=== PATIENT | female | born 1945 | race Caucasian/White ===

== ENCOUNTER → 2020-08-14 15:28 | Outpatient (CLI) | payer MEDICARE, BC, SELFPAY ==
--- NOTE | ~2020-08-14 | XR_ITS ---
EXAMINATION: XR chest 2V DATE: 08/14/2020 15:46 INDICATION: Cough. Shortness of breath. TECHNIQUE: Frontal and lateral views of the chest were obtained. COMPARISON: Chest 2 views 07/01/2014 FINDINGS: There is chronic mild scarring at the lung apices. Calcified right lung nodules are consist ent with old granulomatous disease. No pleural effusion or pneumothorax. The heart size is normal. IMPRESSION: 1. Mild scarring at the lung apices. Reviewed, dictated and finalized at location A.
== END ==
PROVIDERS: PCP Family Medicine; Visit Provider Family Medicine
DX: R05 Cough (principal); R91.8 Other nonspecific abnormal finding of lung field
CPT/HCPCS: 71046

== ENCOUNTER → 2020-10-19 13:18 | Outpatient (CLI) | payer MEDICARE, BC, SELFPAY ==
--- NOTE | ~2020-10-19 | MM_ITS ---
EXAMINATION: MM screening bernadine BI w gely HISTORY: Screening mammogram TECHNIQUE: Craniocaudal and mediolateral oblique 3-D tomosynthesis images were obtained and synthetic 2-D images were generated. CAD analysis was submitted and interpreted. COMPARISON: bilateral digital screening mammogram 09/10/2018 diagnostic right digital mammogram and limited right breast ultrasound 08/30/2018, 04/03/2017 bilateral digital screening mammogram examinations.. BREAST PARENCHYMAL COMPOSITION: The breasts are heterogeneously dense, which may obscure small masses . FINDINGS: There is an asymmetric irregular approximately 5 mm opacity in the posterior margin of the upper mid left breast slightly medial to the mid sagittal plane (craniocaudal Tomosynthesis image 47/ 66). Diagnostic left mammogram and ultrasound examination are recommended. 6 mm mass in the inner aspect of the lower inner quadrant of the right breast (craniocaudal Tomosynth esis image 36/63). Diagnostic right mammogram and right breast ultrasound examination are recommended .. IMPRESSION: 1. New asymmetric irregular 5 mg mass in posterior upper mid left breast; diagnostic left mammogram a nd left breast ultrasound examination are recommended 2. 6 mass in inner aspect of lower inner right breast; diagnostic right mammogram and right breast ul trasound are recommended. BI-RADS Category 0: Incomplete: Needs additional imaging evaluation. Reviewed, dictated and finalized at location A. [facility] IMPRESSION: 1. New asymmetric irregular 5 mg mass in posterior upper mid left breast; diagn ostic left mammogram and left breast ultrasound examination are recommended 2. 6 mass in inner aspect of lower inner right breast; diagnostic right mammogr am and right breast ultrasound are recommended. BI-RADS Category 0: Incomplete: Needs additional imaging evaluation.
--- NOTE | ~2020-10-19 | DEXA_ITS ---
Bone Density Report Name: Adrianna Stanford Age: 75 Sex: Female Ethnicity: White Date of : 1945 Indication: monitoring treatment; height loss; postmenopausal Referring Provider: MIKAL THURMAN Study: Bone densitometry was performed. Exam Date: October 19, 2020 Accession number: [id number] Bone Density: Region BMD T-score Z-score Classification AP Spine (L1, L4) 1.341 2.8 5.3 Normal Femoral Neck (Left) 1.064 1.9 4.1 Normal Total Hip (Left) 1.274 2.7 4.6 Normal Femoral Neck (Right) 1.074 2.0 4.2 Normal Total Hip (Right) 1.234 2.4 4.3 Normal Total Hip Mean 1.254 2.6 4.5 Normal World Health Organization criteria for BMD impression classify patients as: Normal (T-score at or above -1.0), Osteopenia (T-score between -1.0 and -2.5), or Osteoporosis (T-score at or below -2.5). 10-year Fracture Risk: FRAX not reported because: All T-scores for Spine Total, Hip Total, Femoral Neck at or above -1.0 Treated for osteoporosis Previous Exams: Region Exam Age BMD T-score BMD Change BMD Change Date g/cm2 vs Baseline vs Previous AP Spine(L1, L4) 10/19/2020 75 1.341 2.8 0.125* 0.027* 04/03/2017 72 1.314 2.5 0.099* 0.026* 03/17/2015 69 1.288 2.3 0.072* 0.019 03/05/2013 67 1.268 2.1 0.053* -0.013 10/11/2010 65 1.281 2.2 0.065* 0.043* 10/10/2008 63 1.238 1.8 0.022 0.022 09/01/2006 61 1.216 1.6 Total Hip(Left) 10/19/2020 75 1.274 2.7 -0.027 -0.027 04/03/2017 72 1.300 2.9 -0.001 -0.018 03/17/2015 69 1.318 3.1 0.017 0.073* 03/05/2013 67 1.245 2.5 -0.056* 0.033* 10/11/2010 65 1.212 2.2 -0.089* -0.033* 10/10/2008 63 1.245 2.5 -0.056* -0.056* 09/01/2006 61 1.301 2.9 Total Hip(Right) 10/19/2020 75 1.234 2.4 -0.003 0.014 04/03/2017 72 1.220 2.3 -0.017 -0.016 03/17/2015 69 1.236 2.4 -0.001 0.029* 03/05/2013 67 1.207 2.2 -0.030* 0.029* 10/11/2010 65 1.178 1.9 -0.059* -0.016 10/10/2008 63 1.194 2.1 -0.043* -0.043* 09/01/2006 61 1.237 2.4 *Denotes significance at 95% confidence level, LSC for AP Spine = 0.022 g/cm2, LSC for Total Hip = 0.027 g/cm2 Clinical Information Provided by Patient:
== END ==
PROVIDERS: PCP Family Medicine; Visit Provider Family Medicine
DX: Z12.31 Encounter for screening mammogram for malignant neoplasm of breast (principal); Z78.0 Asymptomatic menopausal state; R92.8 Other abnormal and inconclusive findings on diagnostic imaging of breast
CPT/HCPCS: 77063; 77067; 77080

== ENCOUNTER 2021-02-23 10:36 | Outpatient (CLI) | payer MEDICARE, BC, SELFPAY ==
--- NOTE | ~2021-02-23 | XR_ITS ---
EXAMINATION: XR knee LT 3V DATE: 02/23/2021 11:25 INDICATION: Left knee joint effusion. TECHNIQUE: 3 views of left knee were obtained. COMPARISON: Left knee radiograph 05/02/2011 FINDINGS: Bone alignment is normal. No fracture. There is moderate osteoarthritis of medial compartme nt and mild osteoarthritis of lateral and patellofemoral compartments. There is a small knee joint ef fusion. IMPRESSION: 1. Moderate left knee osteoarthritis. 2. Small left knee joint effusion. Reviewed, dictated and finalized at location A.
== END 2021-02-23 10:37 | disposition home or self-care (01) ==
PROVIDERS: PCP Family Medicine; Visit Provider Family Medicine
DX: M25.462 Effusion, left knee (principal); M17.12 Unilateral primary osteoarthritis, left knee
CPT/HCPCS: 73562

== ENCOUNTER → 2021-03-05 14:02 | Outpatient (CLI) | payer MEDICARE, BC, SELFPAY ==
--- NOTE | ~2021-03-05 | MMUS_ITS ---
EXAMINATION: MM diagnostic bernadine BI w gely, US breast BI complete HISTORY: Follow-up developing breast masses TECHNIQUE: Additional 3-D tomosynthesis images of the breasts were performed and synthetic 2-D images were generated. CAD analysis was submitted and interpreted. High resolution complete bilateral breas t ultrasound was performed. COMPARISON: Comparison to multiple prior studies sequentially, with oldest reviewed study dated 03/06. BREAST PARENCHYMAL COMPOSITION: The breasts are heterogenously dense, which may obscure small masses. FINDINGS: MAMMOGRAPHIC FINDINGS: The right breast is stable without evidence for malignancy. There is a new mass in the periareolar lo cation of the left breast measuring 1.3 cm which appears to be contiguous with the skin surface. Ther e are associated calcifications which are nonspecific. There is an irregular shaped mass in the upper medial quadrant of the left breast posteriorly which appears new compared with prior studies. ULTRASOUND: Right breast ultrasound: There are multiple cysts of the right breast measuring 3 mm or smaller. Left breast ultrasound: At 1:00 8 cm from the nipple, there is an oval shaped hypoechoic mass measuri ng 2-3 mm without posterior features or internal vascularity. Near the areola there is an oval hypoec hoic mass with internal cystic changes and significant internal vascularity. There is posterior acous tic enhancement. This mass measures 12 x 11 x 9 mm corresponding to the mass identified on mammograph y. At 3:00, 4 cm from the nipple there is a 2 mm cyst. At 11:00, 9 cm from the nipple, there is a com plex 6 mm mass with hypoechoic internal echotexture. No internal vascularity. There is subtle posteri or acoustic shadowing. IMPRESSION: 1. Abnormal masses of the left breast near the areola and at 11:00, 9 cm from the nipple. Ultrasound- guided biopsy of the periareolar mass recommended. For the smaller mass in the upper inner quadrant o f the left breast inferiorly, consider stereotactic biopsy due to the size and location. BI-RADS CATEGORY 4-SUSPICIOUS ABNORMALITY Reviewed, dictated and finalized at location A. IMPRESSION: 1. Abnormal masses of the left breast near the areola and at 11:00, 9 cm from t he nipple. Ultrasound-guided biopsy of the periareolar mass recommended. For th e smaller mass in the upper inner quadrant of the left breast inferiorly, consi anna stereotactic biopsy due to the size and location. BI-RADS CATEGORY 4-SUSPICIOUS ABNORMALITY
== END ==
PROVIDERS: PCP Family Medicine; Visit Provider Physician Assistant
DX: R92.8 Other abnormal and inconclusive findings on diagnostic imaging of breast (principal)
CPT/HCPCS: 76641; 77062; 77066; G0279

== ENCOUNTER 2021-03-10 15:49 | Outpatient (CLI) | payer MEDICARE, BC, SELFPAY ==
--- NOTE | ~2021-03-10 | US_ITS ---
EXAMINATION: US venous doppler [facility] DATE: 03/10/2021 16:22 INDICATION: Left lower limb pain and swelling TECHNIQUE: Grayscale ultrasound images without and with compression and Doppler ultrasound images of the left lower extremity veins were obtained. COMPARISON: None. FINDINGS: The visualized portions of left common femoral vein, profunda (deep) femoral vein, femoral vein, popl iteal vein, posterior tibial veins, gastrocnemius vein and greater saphenous vein outflow are patent. 7.8 x 1.9 x 2.4 cm Sepulveda cyst at the left popliteal fossa. IMPRESSION: 1. No deep venous thrombosis in the left lower limb. 2. Large Sepulveda's cyst at the left popliteal fossa. Reviewed, dictated and finalized at location A.
== END 2021-03-10 15:50 | disposition home or self-care (01) ==
LOC: ANHIMG 15:59
PROVIDERS: PCP Family Medicine; Visit Provider Physician Assistant Surgical
DX: R60.0 Localized edema (principal); M71.22 Synovial cyst of popliteal space [Baker], left knee
CPT/HCPCS: 93971

== ENCOUNTER 2021-03-25 09:24 | Outpatient (CLI) | payer MEDICARE, BC, SELFPAY ==
--- NOTE | ~2021-03-25 | MMUS_ITS ---
MM post biopsy diagnostic LT, US breast biopsy LT w image 03/25/2021 12:14 (accession [id number]), 03/25/2021 10:21 (accession [id number]) EXAMINATION: US GUIDED NEEDLE BIOPSY WITH VACUUM ASSISTANCE DATE: 03/25/2021 12:21 CDT INDICATION: Abnormal periareolar left breast mass seen on prior examination. Ultrasound-guided core biopsy is requested to evaluate for malignancy. TECHNIQUE AND FINDINGS: The risks and potential benefits of the procedure were discussed with the patient, and written inform ed consent was obtained. After sterile preparation of the left breast, 1% lidocaine was utilized for local anesthesia. 1% lidocaine with epinephrine was used for deep anesthesia. A 10G vacuum-assisted biopsy gun needle was advanced through to the outer edge of the region of inter est from a superior approach utilizing sonographic guidance. A total of 3 tissue core samples were o btained through the lesion. An Inrad tissue marker clip was then placed at the biopsy site. Hemostas is was achieved. The patient tolerated procedure well and there was no evidence of immediate complication. The patien t was given verbal instructions partly is from the department. Left breast mammograms to document ti ssue marker clip placement. The tissue samples were submitted to surgical pathology for histologic an alysis. IMPRESSION: 1. Successful ultrasound-guided vacuum-assisted biopsy of left breast mass with tissue marker placem ent. Please refer to pathology report for histologic analysis. Reviewed, dictated and finalized at location A. IMPRESSION: 1. Successful ultrasound-guided vacuum-assisted biopsy of left breast mass wit h tissue marker placement. Please refer to pathology report for histologic anal ysis.
--- NOTE | ~2021-03-25 | MM_ITS ---
MM stereotactic bx LT, MM stereotactic specimen LT 03/25/2021 12:12 (accession [id number]), 03/25/2021 12:13 (accession [id number]) EXAMINATION: MM stereotactic bx LT, MM stereotactic specimen LT DATE: Sanford Cornelius M.D. INDICATION: Abnormal mass in the left breast, upper central aspect. Stereotactic core biopsy is requ ested evaluate for malignancy. TECHNIQUE AND FINDINGS: The risks and potential benefits of the procedure were discussed with the patient and written informe d consent was obtained. The patient was placed in the prone position clustered at the table with the left breast in lateral medial compression, and the area of interest was localized and targeted utili zing digital imaging with stereotaxis. After sterile preparation of the skin, 1% lidocaine was utilized for local anesthesia at the skin pun cture site and 1% lidocaine with epinephrine was utilized for deeper local anesthesia/is about the bi opsy site. A 9G ESBATech vacuum assisted biopsy needle was advanced to the level of the calcification o f interest from a lateral approach utilizing stereotactic guidance and a total of 6 tissue core biops ies were obtained. A specimen radiograph demonstrates that the calcifications of interest are included within the tissue cores. A tissue marker clip was then placed at the biopsy site. The needle was removed and hemosta sis was achieved. The patient tolerated the procedure well and there is no evidence of significant i mmediate complication. The patient was given verbal as well as written postprocedural instructions p rior to discharge from the department. Tissue cores were submitted to surgical pathology for histolo gic analysis. A 2-view left unilateral digital mammogram was obtained post procedure and this demonstrates that the tissue marker clip is in expected position. IMPRESSION: 1. Successful stereotactic biopsy of left breast mass in the upper central aspect of the left breast , followed by tissue marker clip placement. Please refer to pathology report for histologic analysis . Reviewed, dictated and finalized at location A. IMPRESSION: 1. Successful stereotactic biopsy of left breast mass in the upper central asp ect of the left breast, followed by tissue marker clip placement. Please refer to pathology report for histologic analysis.
== END 2021-03-25 09:25 | disposition home or self-care (01) ==
PROVIDERS: PCP Family Medicine; Visit Provider Physician Assistant
DX: R92.8 Other abnormal and inconclusive findings on diagnostic imaging of breast (principal); C50.212 Malignant neoplasm of upper-inner quadrant of left female breast
CPT/HCPCS: 19081; 19083; 77065; 88305; 88342; 88360; A4648

== ENCOUNTER 2021-04-23 11:13 | Outpatient (CLI) | payer MEDICARE, BC, SELFPAY ==
--- NOTE | ~2021-04-23 | MR_ITS ---
MR breast BI wo/w con 04/23/2021 14:57 CDT INDICATION: Left-sided breast cancer, multifocal. Invasive ductal carcinoma. TECHNIQUE: MRI of the breasts perform using standard protocol pre-and post IV contrast with the follo wing sequences: Axial T2 STIR, axial T1, axial vibrant T1 with fat suppression precontrast and multip hasic postcontrast. COMPARISON: Comparison to multiple prior studies sequentially, with oldest reviewed study dated 04/03. FINDINGS: There are no abnormalities on the precontrast sequences. There is mild background parenchym al enhancement. In the lower outer quadrant of the right breast there is a mass measuring 6 x 3 x 3 m m, 8.3 cm from the nipple with rapid washout enhancement. LEFT BREAST: No signal abnormalities on precontrast sequences. There is mild background parenchymal enhancement. In the subareolar location of the left breast there is a 1.4 x 1.4 x 0.9 cm mass 0.83 cm from the nipple with rapid washout enhancement. This corresponds to one of the sites of recent biops y proven malignancy. In the central aspect of the left breast there is a slightly irregular shaped ma ss measuring 8 x 4 x 5 mm with rapid washout enhancement, likely intramammary lymph node. In the uppe r inner quadrant of the left breast there is a 4 mm mass with persistent rapid enhancement. There is associated artifact, likely from tissue marker from previous biopsy. This corresponds to the site of second biopsy proven malignancy. IMPRESSION: 1: Right breast: Probable benign intramammary lymph node of the right breast at 7:00, 8.3 cm from th e nipple. BI-RADS Category 3. Six-month follow-up diagnostic mammogram recommended. 2: Left breast: Abnormal masses of the left breast in the subareolar location measuring up to 1.4 cm and in the upper inner quadrant of the left breast, 11.4 cm from the nipple. Both masses are compati ble with biopsy-proven malignancy. There is an additional enhancing 8 mm mass in the central aspect o f the left breast. This finding is nonspecific in view of known multicentric malignancy in the left b reast. Cannot exclude additional site of malignancy versus intramammary lymph node Recommend Second Look left breast ultrasound to see if identification of this mass is possible. BI-RADS CATEGORY 0 - INCOMPLETE STUDY, NEED ADDITIONAL IMAGING EVALUATION. Reviewed, dictated and finalized at location A. IMPRESSION: 1: Right breast: Probable benign intramammary lymph node of the right breast a t 7:00, 8.3 cm from the nipple. BI-RADS Category 3. Six-month follow-up diagnos tic mammogram recommended. 2: Left breast: Abnormal masses of the left breast in the subareolar location measuring up to 1.4 cm and in the upper inner quadrant of the left breast, 11.4 cm from the nipple. Both masses are compatible with biopsy-proven malignancy. There is an additional enhancing 8 mm mass in the central aspect of the left br east. This finding is nonspecific in view of known multicentric malignancy in t he left breast. Cannot exclude additional site of malignancy versus intramammar y lymph node Recommend Second Look left breast ultrasound to see if identification of this m ass is possible. BI-RADS CATEGORY 0 - INCOMPLETE STUDY, NEED ADDITIONAL IMAGING EVALUATION.
[2021-04-23 11:44] LABS: Estimated Glomerular Filt Rate 54
== END 2021-04-23 11:14 | disposition home or self-care (01) ==
PROVIDERS: PCP Family Medicine; Visit Provider Internal Medicine Hematology & Oncology
DX: C50.212 Malignant neoplasm of upper-inner quadrant of left female breast (principal); Z17.0 Estrogen receptor positive status [ER+]; R92.8 Other abnormal and inconclusive findings on diagnostic imaging of breast
CPT/HCPCS: 77049; A9577; C8908

== ENCOUNTER 2021-08-25 08:53 | Emergency (ER) | payer MEDICARE, BC, SELFPAY ==
[2021-08-25] VITALS (23 sets, daily range): BP systolic 129–180; BP diastolic 56–94; PULSE 76–87; RESP 15–18; TEMP 36.7; O2SAT 96–100
--- NOTE | ~2021-08-25 | CT_ITS ---
EXAMINATION: CT lumbar spine wo con DATE: 08/25/2021 09:38 INDICATION: Low back pain radiating down right leg. TECHNIQUE: Computed tomography (CT) of the lumbar spine was performed without intravenous contrast. A utomated exposure control and iterative reconstruction technique were employed. The dose-length produ ct was 918.80 mGy-cm. COMPARISON: None FINDINGS: There is 6 degrees dextrocurvature of upper lumbar spine and 4 degrees levocurvature of low er lumbar spine. There is 3 mm retrolisthesis of L1 on L2 and 3 mm anterolisthesis of L2 on L3. Verte bral body heights are normal. There is moderately decreased disc height at L1-L2, L2-L3, and L3-L4 an d severely decreased disc height at L4-L5 and L5-S1 with endplate remodeling. The following disc leve ls are specifically discussed: L1-L2: The disc is bulging. There is mild bilateral facet joint osteoarthritis. There is moderate erica ateral neural foraminal stenosis. There is mild central canal stenosis. L2-L3: The disc is bulging. There is severe bilateral facet joint osteoarthritis. There is mild right and moderate left neural foraminal stenosis. There is moderate central canal stenosis. L3-L4: The disc is bulging. There is mild bilateral facet joint osteoarthritis. There is mild bilater al neural foraminal stenosis. There is mild central canal stenosis. L4-L5: The disc is bulging. There is severe bilateral facet joint osteoarthritis. There is moderate b ilateral neural foraminal stenosis. There is severe central canal stenosis. L5-S1: The disc is bulging. There is moderate bilateral facet joint osteoarthritis. There is mild rig ht and moderate left neural foraminal stenosis. There is mild central canal stenosis. IMPRESSION: 1. Severe lumbar spondylosis. Reviewed, dictated and finalized at location A.
--- NOTE | 2021-08-25 09:16 | PC.NURSE ---
PA at bedside for pt assessment.
--- NOTE | 2021-08-25 09:28 | PC.NURSE ---
Pt to CT.
--- NOTE | 2021-08-25 09:43 | ED.BACK ---
HPI - Back Pain/Injury General Chief Complaint: Back Pain/Injury <Luci Graf PA-C - Last Filed: 08/25/21 11:21> Stated Complaint: back pain <SLIME Roa Last Filed: 08/25/21 11:21> Time Seen by Provider: 08/25/21 09:07 <SLIME Roa Last Filed: 08/25/21 11:21> Source: patient <SLIME Roa Last Filed: 08/25/21 11:21> Mode of arrival: wheelchair <SLIME Roa Last Filed: 08/25/21 11:21> Limitations: no limitations <SLIME Roa Last Filed: 08/25/21 11:21> History of Present Illness HPI Narrative: This is a 76 year old female that presents to the ER for low back pain present since this morning. Reports the pain is in the right lower back. It does at times radiate down the right leg. Worse with movement and relieved with rest. She did take Tylenol earlier this morning for pain. No known injury or trauma. Denies fever, vomiting, dysuria, hematuria, saddle anesthesia, or bowel/bladder incontinence. <Luci Graf PA-C - Last Filed: 08/25/21 11:21> Related Data Home Medications: Home Medications Medication Instructions Recorded Confirmed ascorbic acid (vitamin C) 500 mg mg PO 04/28/20 06/08/21 capsule biotin 1 mg capsule 1 mg PO DAILY 04/28/20 06/08/21 cholecalciferol (vitamin D3) 250 250 mcg PO DAILY 04/28/20 06/08/21 mcg (10,000 unit) tablet bclp-[id number]-[id number]-kdzd-sterols cap PO 04/28/20 06/08/21 375 mg-100 mg-36 mg-54 mg capsule magnesium gluconate 30 mg (550 mg) 30 mg PO DAILY 04/28/20 06/08/21 tablet acetaminophen 325 mg capsule 325 mg PO Q6H PRN 06/08/21 ibuprofen 200 mg capsule 200 mg PO Q6H PRN 06/08/21 <SLIME Roa Last Filed: 08/25/21 11:21> Allergies/Adverse Reactions: Allergies Allergy/AdvReac Type Severity Reaction Status Date / Time No Known Allergies Allergy Verified 08/25/21 11:47 <SLIME Roa Last Filed: 08/25/21 11:21> Review of Systems Review of Systems: CONSTITUTIONAL: Denies fever GASTROINTESTINAL: Denies abdominal pain, nausea, vomiting GENITOURINARY: Denies dysuria or hematuria. MUSCULOSKELETAL: Reports back pain, joint pain, and myalgia. NEUROLOGIC: Denies numbness, or weakness. <SLIME Roa Last Filed: 08/25/21 11:21> All systems reviewed & are unremarkable except as noted in HPI and below <Luci Graf PA-C - Last Filed: 08/25/21 11:21> ON LICENSE OF [facility] Past Medical History Medical History: Medical History Family history of breast cancer Diagnosed in 2020 age 76 History of vaginal delivery x 2 Hypertension Skin cancer <SLIME Roa Last Filed: 08/25/21 11:21> Surgical History Surgical History: Surgical History History of bilateral mastectomy 05/17/21 History of knee replacement History of tubal ligation <SLIME Roa Last Filed: 08/25/21 11:21> Family History Family History: Family History Father Family history of premature coronary heart disease, Onset Age: 75 Patient's father is Mother Family history of lung cancer, Onset Age: 79 Patient's mother is Hypertension Grandparent Family history of malignant neoplasm of breast Other Cerebrovascular accident Diabetes mellitus Family history of arthritis <SLIME Roa Last Filed: 08/25/21 11:21> Social History Social History: Social History Social History: Smoking status: Former smoker Second hand tobacco smoke exposure: No Alcohol intake: current Drinks per week: 7 Substance use: never Gender identity (if verbalized by the patient): Female Sexual Orientation (if Verbalized by the Patient): Straight or Heterosexual
[2021-08-25] MEDS: ACETAMINOPHEN 500 MG TABLET 1000 MG PO (12:19)
[2021-08-25] MEDS: diazePAM INJ (*CRX) 10 MG/2 ML SYRINGE 2.5 MG IM (12:19)
== END 2021-08-25 13:06 | disposition home or self-care (01) ==
PROVIDERS: Emergency Provider General Practice; PCP Family Medicine
DX: M54.31 Sciatica, right side (principal); M47.816 Spondylosis without myelopathy or radiculopathy, lumbar region
CPT/HCPCS: 72131; 96372; 99284; A9270; J3360

== ENCOUNTER 2021-11-03 10:00 | Outpatient (RCR) | payer MEDICARE, BC, SELFPAY ==
--- NOTE | 2021-10-07 09:41 | PTOPEVAL ---
PHYSICAL THERAPY EVALUATION AND PLAN OF CARE 10-07-21 Thank you for referring Adrianna Stanford to [facility].? She is scheduled to be seen for therapy? 2 x/week for 4 weeks. Please review, sign, date and return this plan of care NHUNG. I agree with and certify that the following plan of care is medically necessary. Referring Physician Date Attending Provider: Lindsey Kilgore MD PT Outpatient Evaluation Document 10/07/21 08:25 MINA (Rec: 10/07/21 09:34 MINA [id number]) Outpatient Past Medical History Past Medical History Source of Past Medical History Patient Neurological History Hx Neurological Disorders No Significant History Cardiovascular History Hx Hypertension Yes: meds Respiratory History Hx Respiratory Disorders No Significant History Gastrointestinal History Hx Gastrointestinal Disorders No Significant History Genitourinary History Hx Urinary Tract Infection Yes: recently completed antibiotic, slight discomfort with urination Musculoskeletal History Hx Arthritis Yes: all over body and all joints Hx Back Pain Yes: chronic Hx Orthopedic Surgery Yes: R and L TKR, B foot surgery; Jul 2021-L TKR Endocrine History Hx Endocrine Disorders No Significant History Other History Hx Cancer Yes: L breast cancer, no chemo , no radiation Evaluation Information Problem Diagnosis B mastectomy, L breast cancer stage I Onset May 17, 2021 Subjective Information is not doing any exercises for Query Text:As Reported By Patient/ arms, do move and use arms, Family stretch, but not been instructed on any specific exercises Prior Level of Function Activity Level (Last 3 Months) Occupation retired Hand Dominance Right Activity of Daily Living Ability Independent Indoor/Home Mobility Independent Community Mobility Independent Stairs Ability Independent Functional Cognition (Planning, Shopping Independent , Taking Medications) Cooking Yes Cleaning Yes Laundry Yes Shopping Yes Driving Yes Home Setting Home Type House,Multiple Levels Living Situation With Spouse Mobility Assistive Devices (Used Last 3 None Months) Comments Additional Prior Level of Function prior to breast surgery and L Comments
--- NOTE | 2021-11-03 10:50 | PTOPEVAL ---
PHYSICAL THERAPY DISCHARGE 11-03-21 Refer to the clinical summary below, for her status today, compared to the initial evaluation. The goals were partially achieved. Adrianna will be discharged from PT at this time. Thank you for referring Adrianna Stanford to [facility].? Please review, sign, date and return this Discharge report NHUNG. I agree with and certify that the following plan of care is medically necessary. Referring Physician Date Attending Provider: Lindsey Kilgore MD Document 11/03/21 10:05 MINA (Rec: 11/03/21 10:50 MINA [id number]) Assessment Status Discharge Subjective Information Adrianna reports: things are Query Text:As Reported By Patient/ better, chest tissue has Family softened, have been doing her self massage and wearing the compression sports bra; is able to reach into the cabinets easier; is doing the stretches at home for her shoulders; is ready for discharge due to leaving for [place] next week. Pain Assessment Timing of Pain Assessment Timing of Pain Assessment Assessment Self Report Self Report Pain Level 0 Pain Score Pain Score 0: Self Report Additional Pain Score Comments no tenderness, pain or tightness in trunk Upper Extremity Range of Motion General Upper Extremity Range of Motion Gross Upper Extremity Range of Motion in sitting: R and L shoulder Comments flexion and ER ranges are WNL and did not report any tightness. In supine, with R shoulder flexion- at end range reported tightness over axilla and pec only Lymphedema Evaluation Skin Observations Hyperpigmentation,Hyperplasia Tissue Texture Firm Lymphedema Stage II Skin Inspection Comment no edema over R and L UE; in sitting: minimal edema over R upper lateral trunk and lateral scapular area; no visible edema over L lateral trunk; in supine: palpation over: R trunk: axilla with palpation tightness over pec, with reported tightness;tissue inferior to horizontal breast incision with slight fibrotic t
== END 2021-11-03 12:05 | disposition home or self-care (01) ==
LOC: ANHPT 10:00
PROVIDERS: PCP Family Medicine
DX: I89.0 Lymphedema, not elsewhere classified (principal); C50.212 Malignant neoplasm of upper-inner quadrant of left female breast; Z17.0 Estrogen receptor positive status [ER+]; Z90.13 Acquired absence of bilateral breasts and nipples
CPT/HCPCS: 97140; 97161

== ENCOUNTER 2024-07-30 14:48 | Outpatient (CLI) | payer MEDICARE, BC, SELFPAY ==
[2024-07-30 15:24] LABS: Add Urine Microscopic? YES; Appearance Urine Clear (Clear); Bacteria Urine None Seen /hpf; Bilirubin Urine Negative (Negative); Blood Urine Negative (Negative); Color Urine Dark Yellow (Yellow); Glucose Urine UA Negative (Negative); Ketones Urine Negative (Negative); Leukocyte Esterase Ur 1+ LEU/UL (Negative); Need Manual Microscopic Reviewed; Nitrate Urine Positive (Negative); Non Pathogenic Casts 0-2; Protein Urine Negative (Negative); RBC Urine 0-2 /hpf (0-2); Specific Grav Ur 1.013 (1.001-1.035); Squamous Epithelial Cell Urine None Seen /hpf (Few); WBC Urine 21-50 /hpf (0-3)
== END 2024-07-30 14:49 | disposition home or self-care (01) ==
LOC: ANHLAB 14:51
PROVIDERS: PCP Family Medicine; Visit Provider Family Medicine
DX: R30.0 Dysuria (principal)
CPT/HCPCS: 81001; 87086

== ENCOUNTER 2024-08-23 13:46 | Outpatient (CLI) | payer MEDICARE, BC, SELFPAY ==
--- NOTE | ~2024-08-23 | XR_ITS ---
EXAMINATION: XR cervical spine 4-5V DATE: 08/23/2024 14:02 INDICATION: Cervical disc disorder with radiculopathy. TECHNIQUE: 4 views of cervical spine were obtained. COMPARISON: Cervical spine radiographs 04/05/2010, chest 2 views 08/14/2020 FINDINGS: There is 5 degrees levocurvature of cervical spine. There is 2 mm anterolisthesis of C4 on C5 and C5 on C6 and 3 mm anterolisthesis of C7 on T1. Vertebral body heights are normal. There is sev erely decreased disc height from C3-C4 through C6-C7 with endplate allowing. There is multilevel jennifer re facet joint osteoarthritis. There is mild central canal stenosis at C4-C5 and C5-C6. No prevertebr al soft tissue swelling. There is a 1.8 cm nodule in left lung. IMPRESSION: 1. Severe cervical spondylosis. 2. Left lung nodule, which may be granulomatous disease or malignancy. Noncontrast chest CT is recomm ended. Reviewed, dictated and finalized at location A. IMPRESSION: 1. Severe cervical spondylosis. 2. Left lung nodule, which may be granulomatous disease or malignancy. Noncontr ast chest CT is recommended.
== END 2024-08-23 13:47 | disposition home or self-care (01) ==
LOC: MICIMG 13:47
PROVIDERS: PCP Family Medicine; Visit Provider Family Medicine
DX: M47.812 Spondylosis without myelopathy or radiculopathy, cervical region (principal); R91.1 Solitary pulmonary nodule; M50.10 Cervical disc disorder with radiculopathy, unspecified cervical region
CPT/HCPCS: 72050

== ENCOUNTER 2024-09-05 13:15 | Outpatient (CLI) | payer MEDICARE, BC, SELFPAY ==
--- NOTE | ~2024-09-05 | CT_ITS ---
CT Scan of the Chest without Contrast: Clinical Indication: Pulmonary nodule Technique: Contiguous sections were acquired throughout the chest without intravenous contrast. Dose reduction technique was used on this scan by utilizing automated exposure control and iterative recon struction technique. The dose-length product (DLP) was 117.43 mGy-cm. Findings: There is no evidence of any significant mediastinal, hilar or axillary lymphadenopathy. Small calcifi ed mediastinal lymph nodes are present. Coronary artery calcifications are present. There is no evidence of pleural or pericardial effusion. Biapical calcified pleural plaques are present. Several calcified granulomas noted. Linear scarring l eft lung base noted. There is a 3 mm noncalcified lingular nodule (axial image 86). Images through the upper abdomen reveal no abnormalities. Impression: Calcified pleural plaques and biapical scarring. 3 mm lingular nodule. According to Fleischner Society criteria, for a low-risk patient, no further fo llow-up required. For a high-risk patient, consider 12 month follow-up CT. Reviewed, dictated and finalized at [facility]. Impression: Calcified pleural plaques and biapical scarring. 3 mm lingular nodule. According to Fleischner Society criteria, for a low-risk patient, no further follow-up required. For a high-risk patient, consider 12 mo nt follow-up CT.
== END 2024-09-05 13:16 | disposition home or self-care (01) ==
PROVIDERS: PCP Family Medicine; Visit Provider Student in an Organized Health Care Education/Training Program
DX: J94.8 Other specified pleural conditions (principal); J98.4 Other disorders of lung; R91.1 Solitary pulmonary nodule
CPT/HCPCS: 71250

== ENCOUNTER 2025-03-10 08:00 | Outpatient (CLI) | payer MEDICARE, BC, SELFPAY ==
--- NOTE | ~2025-03-10 | DEXA_ITS ---
Bone Density Report Name: MIKAELA JIMENEZ Age: 79 Sex: Female Ethnicity: White Date of : 1945 Indication: postmenopausal; screening for osteoporosis; height loss; Referring Provider: MIKAL THURMAN Study: Bone densitometry was performed. Exam Date: March 10, 2025 Accession number: [id number] Bone Density: Region BMD T-score Z-score Classification AP Spine(L1-L4) 1.376 3.0 5.7 Normal Femoral Neck (Left) 0.974 1.1 3.5 Normal Total Hip (Left) 1.171 1.9 4.0 Normal Femoral Neck (Right) 1.036 1.7 4.1 Normal Total Hip (Right) 1.123 1.5 3.7 Normal Total Hip Mean 1.147 1.7 3.9 Normal World Health Organization criteria for BMD impression classify patients as: Normal (T-score at or above -1.0), Osteopenia (T-score between -1.0 and -2.5), or Osteoporosis (T-score at or below -2.5). 10-year Fracture Risk: FRAX not reported because: All T-scores for Spine Total, Hip Total, Femoral Neck at or above -1.0 Clinical Information Provided by Patient: Has used the following medications: HRT (i.e. estrogen/hormone therapy), Vitamin D, Calcium Patient maximum height was 67 Menopause Age: 47 No regular weight bearing exercise Onset of menses at age 13 Number of children 2 Impression: The patient has normal bone mass. Discussion: LOW RISK OF FRACTURE; BONE DENSITY IS WELL ABOVE THE MINIMUM DESIRABLE LEVEL AND ABOVE AVERAGE FOR AGE AND SEX AT ALL SKELETAL SITES TESTED. This person's bone density is above expected limits for age and sex. This is rarely clinically significant, but should be pursued if there are significant musculoskeletal complaints. The patient should follow a healthful lifestyle (good nutrition with adequate calcium and vitamin D, and appropriate weight-bearing exercise). Follow-Up: Consider repeating this study in 5 years or sooner if there is some new clinical indication. Reported by: BLAKE on 03/10/2025 8:41:00 AM. Reviewed, dictated and finalized at location ASofia AKINS
--- OUTSIDE RECORDS SUMMARY | 2025-03-10 08:25 | XMS_ITS | Clinical Summary ---
Author Organization [facility] Address [address] [place] [address] Care Team Providers Care Bell Maker Name Role Phone Maggie Thomas MD Primary Care Provider Allergies Active Allergy Reactions Criticality Noted Date Comments Anastrozole Itching,Rash Medium 09/21/2021 Medications amLODIPine (NORVASC) 5 mg tablet amlodipine 5 mg tablet 1 Active clobetasoL (TEMOVATE) 0.05 % cream APPLY TOPICALLY TO THE AFFECTED AREA EVERY DAY AT BEDTIME 4 Active conj estrogens-bazed oxifene (Duavee) 0.45-20 mg tablet 0.45-20 mg daily Active traZODone (DESYREL) 50 mg tablet Take 1 tablet (50 mg total) by mouth nightly at bedtime 4 Active lidocaine (LIDODERM) 5 %Indications:Ac masha right-sided thoracic back pain Place 1 patch on the skin daily for 5 days Apply to painful area 12 hours per day, remove for 12 hours. 5 patch 4 Active Active Problems Problem Noted Date Diagnosed Date S/P bilateral mastectomy 09/21/2021 Essential hypertension 05/17/2021 Malignant neoplasm of upper- inner quadrant of left breast in female, estrogen receptor positive 04/02/2021 Varicose veins of left lower extremity 6 Immunizations Immunization Administration Dates Next Due Influenza, Quad, Adjuvantate d, Intramuscular 08/30/2023,09/03/2021 Influenza, Quadrivalent, Hig h Dose, Preservative Free, Intrr 08/16/2022,08/12/2020 Influenza, Trivalent, High D ose, Split, Preservative Free, Intramuscular 08/11/2019,08/24/2018,08/29/2017 Moderna SARS-CoV-2 Monovalen t Vaccination (12+ YRS) 02/02/2021,01/13/2021 Tdap 04/28/2021 ZOSTER Recombinant 10/22/2021 Surgical History Surgery Date Site/Laterality Comments TOE SURGERY REPLACEMENT TOTAL KNEE Medical History Medical History Date Comments Hypertension Cancer (HCC) Arthritis Bladder infection Family History Medical History Relation Name Comments Heart disease Father Lung cancer Mother Relation Name Status Comments Father (Age 75) Mother (Age 79) Sister (Age 57) Social History Tobacco Use Types Packs/Day Years Used Date Smoking Tobacco: Never Smokeless Tobacco: Never AUDIT-C Answer Date Recorded Q1: How often do you have a drink containing alcohol? 4 or more times a week 05/17/2021 Q2: How many drinks containi ng alcohol do you have on a typical day when you are drinking? 1 or 2 Q3: How often do you have si x or more drinks on one occasion? 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 Gender Identity Not on file Sexual Orientation Not on file Obstetrics History Last Filed Vital Signs Vital Sign Reading Time Taken Comments Blood Pressure 179/97 07/14/2024 4:46 PM CDT Pulse 72 07/14/2024 4:39 PM CDT Temperature 36.7 C (98 F) 07/14/2024 4:39 PM CDT Respiratory Rate 18 07/14/2024 4:39 PM CDT Oxygen Saturation 98% 07/14/2024 4:39 PM CDT Inhaled Oxygen Concentration - - Weight 77.1 kg (170 lb) 07/14/2024 4:39 PM CDT Height 165.1 cm (5' 5 ) 07/14/2024 4:39 PM CDT Body Mass Index 28.29 07/14/2024 4:39 PM CDT Plan of Treatment Health Maintenance Due Date Last Done Comments Depression Screening 1943 Fall Risk Assessment 1943 Osteoporosis Screening-Bone Density Scan 1943 Hepatitis B Screening 1961 Pneumococcal vaccine 65+ (1 of 1 - PCV) 1993 Well Visit 65+ 2008 Zoster Vaccine (2 of 2) 12/17/2021 10/22/2021 Covid-19 Vaccine (7 2023-2 5 season) 2024 08/18/2023, 09/30/2022, 05/13/2022, Additional history exists Influenza Vaccine (#1) 2024 , 08/16/2022, 09/03/2021, Additional history exists DTaP/Tdap/Td Vaccine (2 - Td or Tdap) 04/28/2031 04/28/2021 Insurance MEDICARE [facility] MEDICARE [place] Care Teams Bell Maker Relationship Specialty Start Date End Date Maggie Thomas MD [address] [facility] [address] [place] [address] PCP - General Family Medicine 08/19/20
--- OUTSIDE RECORDS SUMMARY | 2025-03-10 08:25 | XMS_ITS | Encounter Summary ---
Author Organization [facility] Address 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 Gender Identity Not on file Sexual Orientation Not on file documented as of this encounter Plan of Treatment Upcoming Encounters Date Type Department Care Team (Late st Contact Info) Description 04/08/2025 11:00 AM CDT Office Visit [facility] Oncology and Hematology - [place] [address] [facility] [address] [place] [address] Yaron Lopez MD [address] [facility] [address] [place] [address] documented as of this encounter Visit Diagnoses Diagnosis Depressive disorder, not elsewhere classified- Primary documented in this encounter Care Teams Organization Development Consultant Relationship Specialty Start Date End Date Maggie Thomas MD PCP - General Family Practice 04/02/21 documented as of this encounter
--- OUTSIDE RECORDS SUMMARY | 2025-03-10 08:25 | XMS_ITS | Encounter Summary ---
Author Organization [facility] Address [address] [place] [address] Care Team Providers Care Religious Activities Director Name Role Phone Maggie Thomas MD Primary Care Provider [phone]- [phone] Encounter Details Date Type Department Care Team (Late st Contact Info) Description 11/03/1998 Outpatient Historical [facility] Internal Medicine Medical [facility] [address] [facility] [address] [address] Leticia Garza Social History Tobacco Use Types Packs/Day Years Used Date Smoking Tobacco: Never Assessed Comments Unknown Sex and Gender Information Value Date Recorded Sex Assigned at Not on file Legal 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 Female 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 Gender Identity Not on file Sexual Orientation Not on file documented as of this encounter Plan of Treatment Upcoming Encounters Date Type Department Care Team (Late st Contact Info) Description 04/08/2025 11:00 AM CDT Office Visit [facility] Oncology and Hematology - [place] [address] [facility] [address] [place] [address] Yaron Lopez MD [address] [facility] [address] [place] [address] documented as of this encounter Visit Diagnoses Not on filedocumented in this encounter Care Teams Religious Activities Director Relationship Specialty Start Date End Date Maggie Thomas MD PCP - General Family Practice 04/02/21 documented as of this encounter
--- OUTSIDE RECORDS SUMMARY | 2025-03-10 08:25 | XMS_ITS | Encounter Summary ---
Author Organization [facility] Care Team Providers Care Chief Nuclear Medicine Technologist Name Role Phone Arcadio Valdivia DO Primary Care Provider [phone] Maggie Thomas MD Primary Care Provider Encounter Details Date Type Department Care Team (Latest Contact Info) Description 03/18/2016 Orders Only [facility]INCON[facility] ProviderLaurie MD [address] [place] [id number] Social History Tobacco Use Types Packs/Day Years Used Date Smoking Tobacco: Never Assessed Comments Unknown Sex and Gender Information Value Date Recorded Sex Assigned at Not on file 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 us Historical Provider Final Res ult documented in this encounter Visit Diagnoses Not on filedocumented in this encounter Care Teams Chief Nuclear Medicine Technologist Relationship Specialty Start Date End Date Arcadio Valdivia DO PCP - General 05/26/17 08/18/20 Maggie Thomas MD [address] [facility] [address] [place] [id number] PCP - General Family Medicine 08/19/20 documented as of this encounter
--- OUTSIDE RECORDS SUMMARY | 2025-03-10 08:25 | XMS_ITS | Encounter Summary ---
Author Organization 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 [address] [place] [address] Yaron Lopez MD [address] [facility] [address] [place] [address] documented as of this encounter Visit Diagnoses Not on filedocumented in this encounter Care Teams Assembler Sandal Parts Relationship Specialty Start Date End Date Maggie Thomas MD PCP - General Family Practice 04/02/21 documented as of this encounter
--- OUTSIDE RECORDS SUMMARY | 2025-03-10 08:25 | XMS_ITS | Encounter Summary ---
Author Organization [facility] Address [address] [place] [address] Care Team Providers Care Shed Workers Supervisor Name Role Phone Maggie Thomas MD Primary Care Provider [phone]- [phone] Encounter Details Date Type Department Care Team (Late st Contact Info) Description 04/16/[address] 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 Oncology and Hematology - [place] [address] [facility] [address] [place] [address] Yaron Lopez MD [address] [facility] [address] [place] [address] documented as of this encounter Visit Diagnoses Not on filedocumented in this encounter Care Teams Shed Workers Supervisor Relationship Specialty Start Date End Date Maggie Thomas MD PCP - General Family Practice 04/02/21 documented as of this encounter
--- OUTSIDE RECORDS SUMMARY | 2025-03-10 08:25 | XMS_ITS | Encounter Summary ---
Author Organization [facility] Address [address] [place] [address] Care Team Providers Care Pot Lining Supervisor Name Role Phone Maggie Thomas MD Primary Care Provider [phone]- [phone] Encounter Details Date Type Department Care Team (Late st Contact Info) Description 02/29/2000 Outpatient Historical [facility] Internal Medicine Medical [facility] [address] [facility] [address] [address] Leticia Garza Social History Tobacco Use Types Packs/Day Years Used Date Smoking Tobacco: Never Assessed Comments Unknown Sex and Gender Information Value Date Recorded Sex Assigned at Not on file Legal Sex Female 5: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 Gender Identity Not on file Sexual Orientation Not on file documented as of this encounter Plan of Treatment Upcoming Encounters Date Type Department Care Team (Late st Contact Info) Description 04/08/2025 11:00 AM CDT Office Visit [facility] Oncology and Hematology - [place] [address] [facility] [address] [place] [address] Yaron Lopez MD [address] [facility] [address] [place] [address] documented as of this encounter Visit Diagnoses Not on filedocumented in this encounter Care Teams Pot Lining Supervisor Relationship Specialty Start Date End Date Maggie Thomas MD PCP - General Family Practice 04/02/21 documented as of this encounter
--- OUTSIDE RECORDS SUMMARY | 2025-03-10 08:25 | XMS_ITS | Encounter Summary ---
Author Organization [facility] Address [address] [facility] Attn: Epic Prelude ADT [place] [address] Care Team Providers Care Printer Slotter Operator Name Role Phone Maggie Thomas MD Primary Care Provider [phone]- [phone] Encounter Details Date Type Department Care Team (Late st Contact Info) Description 10/21/1996 Outpatient Historical Conversion, History Leticia Garza Social History Tobacco Use Types Packs/Day Years Used Date Smoking Tobacco: Never Assessed Comments Unknown Sex and Gender Information Value Date Recorded Sex Assigned at Not on file Legal Sex Female 5: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 LOIN 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 Gender Identity Not on file Sexual Orientation Not on file documented as of this encounter Plan of Treatment Upcoming Encounters Date Type Department Care Team (Late st Contact Info) Description 04/08/2025 11:00 AM CDT Office Visit [facility] Oncology and Hematology - [place] [address] [place] [address] [facility] [address] [place] [address] Yaron Lopez MD [address] [facility] [address] [place] [address] documented as of this encounter Visit Diagnoses Not on filedocumented in this encounter Care Teams Printer Slotter Operator Relationship Specialty Start Date End Date Maggie Thomas MD PCP - General Family Practice 04/02/21 documented as of this encounter
--- OUTSIDE RECORDS SUMMARY | 2025-03-10 08:25 | XMS_ITS | Clinical Summary ---
Author Organization [facility] Address [address] [facility] [place] [place] [address] Care Team Providers Care Steam Oven Operator Name Role Phone Maggie Thomas MD Primary Care Provider +1- [phone] Allergies Active Allergy Reactions Criticality Noted Date Comments Anastrozole Rash,Itching Low 09/21/2021 Medications amLODIPine (NORVASC) 5 mg tablet Take 5 mg by mouth daily. 04/22/2021 Active Active Problems Patient Care Coordination No te Formatting of this note migh t be different from the original. Primary Care: Maggie Thomas MD Referring Provider: Maggie Thomas MD [address] [facility] [place] [address] Other: Dr. Lindsey Kilgore MD Problem Noted Date Diagnosed Date S/P bilateral mastectomy 09/21/2021 Malignant neoplasm of upper- inner quadrant of left breast in female, estrogen receptor positive 04/02/2021 Cancer Staging:Clinical stage from 05/26/2021:Stage IA(cT1c, cN0(sn), cM0, G2, ER+, CA+, HER2-) - Signed by Lindsey Kilgore MD on 05/26/2021 Encounters Date Type Department Care Team Description 02/05/2025 External Device Data STL ABSTRACTION Provider, Abstract 02/05/2025 External Device Data STL ABSTRACTION Provider, Abstract 01/25/2025 External Device Data STL ABSTRACTION Provider, Abstract 01/24/2025 External Device Data STL ABSTRACTION Provider, Abstract 01/07/2025 External Device Data STL ABSTRACTION Provider, Abstract 12/12/2024 External Device Data STL ABSTRACTION Provider, Abstract from Last 3 Months Immunizations Immunization Administration Dates Next Due (SPIKEVAX) (12 YRS UP PRIMAR Y SERIES) COVID-19 VACCINE - MRNA-[id number](PF) 100 MCG/0.5 ML IM SUSP 02/02/2021,01/13/2021 Family History Medical History Relation Name Comments Breast Cancer Daughter Heart Disease Father Lung Cancer Mother Diabetes Son Heart Disease Son Relation Name Status Comments Brother Alive Daughter Alive Father Mother Sister Son Alive Social History Tobacco Use Types Packs/Day Years Used Date Smoking Tobacco: Former Cigarettes 0.5 10 Smokeless Tobacco: Never Tobacco Cessation:Counseling Given: Not Answered Alcohol Use Standard Drinks/Week Comments Yes 0 (1 standard drink = 0.6 oz pur e alcohol) occasional Comments No Sex and Gender Information Value Date Recorded Sex Assigned at Not on file Legal Sex Female 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1 cm (5' 5 ) 08/31/2022 1:08 PM CDT Body Mass Index 28.42 08/31/2022 1:08 PM CDT Plan of Treatment Upcoming Encounters Date Type Department Care Team (Late st Contact Info) Description 04/08/2025 11:00 AM CDT Office Visit [facility] Oncology and Hematology - [place] [address] [place] [address] Yaron Lopez MD [address] [facility] [address] [place] [address] Health Maintenance Due Date Last Done Comments PNEUMOCOCCAL VACCINE 50+ YEA RS (1 of 1 - PCV) 1993 RSV VACCINE (60+ or ) (1 - 1-dose 75+ series) 2018 ZOSTER VACCINE (2 of 2) 12/17/2021 10/22/2021 OSTEOPOROSIS SCREENING 04/03/2022 04/03/2017, 2014 INFLUENZA VACCINE (#1) 2024 , 08/16/2022, 09/03/2021, Additional history exists COVID-19 Vaccine (3 - 2023-2 5 season) 2024 02/02/2021, 01/13/2021 DTAP/TDAP/TD VACCINES (2 - T d or Tdap) 04/28/2031 04/28/2021 Colorectal Cancer Screening Discontinued FIT/FOBT Q 1 year Discontinued 03/14/2000, , 11/03/1998 COLORECTAL SCREENING Discontinued FIT-DNA Q 3 years Discontinued Flex Sig/CT Colonography Q 5 years Discontinued Medical Devices Implanted Type Area Mine Promotor Device Identifier Shelf Expiration Date Model / Serial / Lot Trades Helper Clip Surgiclip Ii Presley 9.75in [id number] - [id number] Implanted:Qty : 1 on 05/17/2021 by Lindsey Kilgore MD at [facility] Clip Breast MEDTRONIC - COVIDIEN [id number] 02/17/2026 [id number] / / [id number] Hemostatic Surgicel 4x8in 1953 - [id number] Implanted:Qty : 3 on 05/17/2021 by Lindsey Kilgore MD at [facility] Hemostatic Breast J[employer]J- [employer] 06/19/20251951 / / [id number] Hemostatic Surgicel 4x8in 1953 - [id number] Implanted:Qty : 1 on 05/17/2021 by Lindsey Kilgore MD at [facility] [place] Hemostatic Breast J[employer]J- [employer] 06/19/20251951 / / [id number] Total Knee Hardware Insurance MEDICARE PART A AND B [facility]AL [facility] MEDICARE PART A AND B RX [facility] [employer] Advance Directives For more information, please contact: [phone] * Full Code (Latest Code Status on File) Date Activated Date Inactivated Comments 05/17/2021 1:40 PM 05/18/2021 12:43 PM Care Teams Steam Oven Operator Relationship Specialty Start Date End Date Maggie Thomas MD PCP - General Family Practice 04/02/21
--- OUTSIDE RECORDS SUMMARY | 2025-03-10 08:25 | XMS_ITS | Encounter Summary ---
Author Organization [facility] Address [address] [place] [address] Care Team Providers Care Associate Justice Name Role Phone Maggie Thomas MD Primary Care Provider +1- [phone] Encounter Details Date Type Department Care Team (Late st Contact Info) Description 12/17/1998 Outpatient Historical [facility] Internal Medicine Medical [facility] [address] [address] Leticia Garza Social History Tobacco Use Types Packs/Day Years Used Date Smoking Tobacco: Never Assessed Comments Unknown Sex and Gender Information Value Date Recorded Sex Assigned at Not on file Legal Sex Female 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 Gender Identity Not on file Sexual Orientation Not on file documented as of this encounter Plan of Treatment Upcoming Encounters Date Type Department Care Team (Late st Contact Info) Description 04/08/2025 11:00 AM CDT Office Visit [facility] Oncology and Hematology - [place] [address] [facility] [address] [place] [address] Yaron Lopez MD [address] [facility] [address] [place] [address] documented as of this encounter Visit Diagnoses Not on filedocumented in this encounter Care Teams Associate Justice Relationship Specialty Start Date End Date Maggie Thomas MD PCP - General Family Practice 04/02/21 documented as of this encounter
--- OUTSIDE RECORDS SUMMARY | 2025-03-10 08:25 | XMS_ITS | Encounter Summary ---
Author Organization 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 Oncology and Hematology - [place] [address] [place] [address] [facility] [address] [place] [address] Yaron Lopez MD [address] [facility] [address] [place] [address] documented as of this encounter Visit Diagnoses Not on filedocumented in this encounter Care Teams Wire Stitcher Machine Relationship Specialty Start Date End Date Maggie Thomas MD PCP - General Family Practice 04/02/21 documented as of this encounter
--- OUTSIDE RECORDS SUMMARY | 2025-03-10 08:25 | XMS_ITS | Encounter Summary ---
Author Organization [facility] Address [address] [place] [address] Care Team Providers Care C.O.D. 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 [address] [place] [address] documented as of this encounter Visit Diagnoses Not on filedocumented in this encounter Care Teams C.O.D. Audit Clerk Relationship Specialty Start Date End Date Maggie Thomas MD PCP - General Family Practice 04/02/21 documented as of this encounter
--- OUTSIDE RECORDS SUMMARY | 2025-03-10 08:25 | XMS_ITS | Encounter Summary ---
Author Organization [facility] Address [address] [place] [address] Care Team Providers Care Bin Packer Name Role Phone Maggie Thomas MD Primary Care Provider +1- [phone] Encounter Details Date Type Department Care Team (Late st Contact Info) Description 03/14/2000 Outpatient Historical [facility] Internal Medicine Medical [facility] [address] [address] Leticia Garza Social History Tobacco Use Types Packs/Day Years Used Date Smoking Tobacco: Never Assessed Comments Unknown Sex and Gender Information Value Date Recorded Sex Assigned at Not on file Legal Sex Female 5:18 AM MANAGER TRACK Gender Identity Not on file Sexual Orientation Not on file documented as of this encounter Plan of Treatment Upcoming Encounters Date Type Department Care Team (Late st Contact Info) Description 04/08/2025 11:00 AM CDT Office Visit [facility] Oncology and Hematology - [place] [address] [facility] [address] [place] [address] Yaron Lopez MD [address] [facility] [address] [place] [address] documented as of this encounter Visit Diagnoses Not on filedocumented in this encounter Care Teams Bin Packer Relationship Specialty Start Date End Date Maggie Thomas MD PCP - General Family Practice 04/02/21 documented as of this encounter
--- OUTSIDE RECORDS SUMMARY | 2025-03-10 08:25 | XMS_ITS | Encounter Summary ---
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 Gender Identity Not on file Sexual Orientation Not on file documented as of this encounter Plan of Treatment Upcoming Encounters Date Type Department Care Team (Late st Contact Info) Description 04/08/2025 11:00 AM CDT Office Visit [facility] Oncology and Hematology - [place] [address] [facility] [address] [place] [address] Yaron Lopez MD [address] [facility] [address] [place] [address] documented as of this encounter Visit Diagnoses Not on filedocumented in this encounter Care Teams Health Care Technician Relationship Specialty Start Date End Date Maggie Thomas MD PCP - General Family Practice 04/02/21 documented as of this encounter
--- OUTSIDE RECORDS SUMMARY | 2025-03-10 08:25 | XMS_ITS | Referral Summary ---
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
--- OUTSIDE RECORDS SUMMARY | 2025-03-10 08:25 | XMS_ITS | Encounter Summary ---
Author Organization [facility] Address [address] [facility] Attn: Epic Prelude ADT [place] BOB [address] Care Team Providers Care Supervisor Dry Cleaning Name Role Phone Maggie Thomas MD Primary Care Provider +1- [phone] Encounter Details Date Type Department Care Team (Late st Contact Info) Description 12/02/1996 Outpatient Historical Conversion, History Leticia Garza Social History Tobacco Use Types Packs/Day Years Used Date Smoking Tobacco: Never Assessed Comments Unknown Sex and Gender Information Value Date Recorded Sex Assigned at Not on file Legal Sex Female 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 Gender Identity Not on file Sexual Orientation Not on file documented as of this encounter Plan of Treatment Upcoming Encounters Date Type Department Care Team (Late st Contact Info) Description 04/08/2025 11:00 AM CDT Office Visit [facility] Oncology and Hematology - [place] [address] [place] [address] [facility] 200 [place] [address] Yaron Lopez MD [address] [facility] [address] [place] [address] documented as of this encounter Visit Diagnoses Not on filedocumented in this encounter Care Teams Supervisor Dry Cleaning Relationship Specialty Start Date End Date Maggie Thomas MD PCP - General Family Practice 04/02/21 documented as of this encounter
== END 2025-03-10 08:01 | disposition home or self-care (01) ==
LOC: ANHIMG 08:01
PROVIDERS: PCP Family Medicine; Visit Provider Family Medicine
DX: Z78.0 Asymptomatic menopausal state (principal)
CPT/HCPCS: 77080

== ENCOUNTER 2025-03-17 14:38 | Outpatient (CLI) | payer MEDICARE, BC, SELFPAY ==
--- NOTE | ~2025-03-17 | US_ITS ---
EXAM: PELVIC ULTRASOUND HISTORY: R10.2 - Pelvic and perineal pain COMPARISON: None. FINDINGS: UTERUS: 5.8 x 2.2 x 3.0 cm. The endometrial complex measures 1 mm. RIGHT OVARY: The right ovary is unremarkable in echogenicity and size measuring 1.1 x 1.8 x 1.5 cm. Dopplerable flow is identified. LEFT OVARY: The left ovary is unremarkable in echogenicity and size measuring 1.3 x 2.1 x 1.7 cm Dopplerable flow is identified. No free fluid is identified within the pelvis. IMPRESSION: Unremarkable sonographic evaluation of the postmenopausal female pelvis, as detailed above. If clinical suspicion persists, cross-sectional imaging (contrast-enhanced CT or MRI) is recommended for further evaluation. Reviewed, dictated and finalized at location A. IMPRESSION: Unremarkable sonographic evaluation of the postmenopausal female pelvis, as det chikis above. If clinical suspicion persists, cross-sectional imaging (contrast-enhanced CT o r MRI) is recommended for further evaluation.
--- OUTSIDE RECORDS SUMMARY | 2025-03-17 16:49 | XMS_ITS | Encounter Summary ---
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 Gender Identity Not on file Sexual Orientation Not on file documented as of this encounter Plan of Treatment Upcoming Encounters Date Type Department Care Team (Late st Contact Info) Description 04/08/2025 11:00 AM CDT Office Visit [facility] Oncology and Hematology - [place] [address] [place] [address] [facility] [address] [place] [address] Yaron Lopez MD [address] [facility] [address] [place] [address] documented as of this encounter Visit Diagnoses Not on filedocumented in this encounter Care Teams Hematology Technician Relationship Specialty Start Date End Date Maggie Thomas MD PCP - General Family Practice 04/02/21 documented as of this encounter
--- OUTSIDE RECORDS SUMMARY | 2025-03-17 16:49 | XMS_ITS | Encounter Summary ---
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 Gender Identity Not on file Sexual Orientation Not on file documented as of this encounter Plan of Treatment Upcoming Encounters Date Type Department Care Team (Late st Contact Info) Description 04/08/2025 11:00 AM CDT Office Visit [facility] Oncology and Hematology - [place] [address] [facility] [address] [place] [address] Yaron Lopez MD [address] [facility] [address] [place] [address] documented as of this encounter Visit Diagnoses Not on filedocumented in this encounter Care Teams Stack Clerk Relationship Specialty Start Date End Date Maggie Thomas MD PCP - General Family Practice 04/02/21 documented as of this encounter
--- OUTSIDE RECORDS SUMMARY | 2025-03-17 16:49 | XMS_ITS | Referral Summary ---
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
--- OUTSIDE RECORDS SUMMARY | 2025-03-17 16:49 | XMS_ITS | Clinical Summary ---
Author Organization [facility] Address [address] [facility] [place] [address] Care Team Providers Care Vegetable I Farmworker Name Role Phone Maggie Thomas MD Primary Care Provider +1- [phone] Allergies Active Allergy Reactions Criticality Noted Date Comments Anastrozole Rash,Itching Low 09/21/2021 Medications amLODIPine (NORVASC) 5 mg tablet Take 5 mg by mouth daily. 04/22/2021 Active Active Problems Patient Care Coordination No te Formatting of this note migh t be different from the original. Primary Care: Maggie Thomas MD Referring Provider: Maggie Thomas MD [address] [facility] [place] [address] Other: Dr. 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 Gender Identity Not on file Sexual Orientation Not on file Last Filed Vital Signs Vital Sign Reading Time Taken Comments Blood Pressure 145/72 10/08/2024 11:43 AM ROLLER STRUCTURAL MILL Pulse 69 10/08/2024 11:40 AM ROLLER STRUCTURAL MILL Temperature 36.3 C (97.3 F) 10/08/2024 11:40 AM ROLLER STRUCTURAL MILL Respiratory Rate 14 10/08/2024 11:4 0 AM ROLLER STRUCTURAL MILL Oxygen Saturation 97% 10/08/2024 11: 40 AM ROLLER STRUCTURAL MILL Inhaled Oxygen Concentration - - Weight 77.5 kg (170 lb 12.8 oz) 024 11:40 AM ROLLER STRUCTURAL MILL Height 165.1 cm (5' 5 ) 08/31/2022 1:08 PM CDT Body Mass Index 28.42 08/31/2022 1:08 PM CDT Plan of Treatment Upcoming Encounters Date Type Department Care Team (Late st Contact Info) Description 04/08/2025 11:00 AM CDT Office Visit [facility] Oncology and Hematology - [place] [address] [facility] [address] [place] [address] Yaron Lopez MD [address] [facility] [address] [place] [address] Health Maintenance Due Date Last [...] years Discontinued Medical Devices Implanted Type Area Payloader Operator Device Identifier Shelf Expiration Date Model / Serial / Lot Pharmacy Picking Tech Clip Surgiclip Ii Presley 9.75in [id number] - [id number] Implanted:Qty : 1 on 05/17/2021 by Lindsey Kilgore MD at [facility] Clip Breast [employer] - COVIDIEN [id number] 02/17/2026 [id number] / / [id number] Hemostatic Surgicel 4x8in 1953 [id number] Implanted:Qty : 3 on 05/17/2021 by Lindsey Kilgore MD at [facility] Hemostatic Breast J&J- [employer] 06/19/20251951 / / [id number] Hemostatic Surgicel 4x8in 1953 [id number] Implanted:Qty : 1 on 05/17/2021 by Lindsey Kilgore MD at [facility] Hemostatic Breast J[employer]- [employer] 06/19/20251951 / / [id number] Total Knee Hardware Insurance MEDICARE PART A AND B [facility]AL [facility] FEDERAL MEDICARE PART A AND B RX [facility] [employer] Advance Directives For more information, please contact: [phone] * Full Code (Latest Code Status on File) Date Activated Date Inactivated Comments 05/17/2021 1:40 PM 05/18/2021 12:43 PM Care Teams Vegetable I Farmworker Relationship Specialty Start Date End Date Maggie Thomas MD PCP - General Family Practice 04/02/21
--- OUTSIDE RECORDS SUMMARY | 2025-03-17 16:49 | XMS_ITS | Encounter Summary ---
Author Organization [facility] Address [address] [place] [address] Care Team Providers Care Television Mechanic Name Role Phone Maggie Thomas MD Primary Care Provider [phone]- [phone] Encounter Details Date Type Department Care Team (Late st Contact Info) Description 12/29/1998 Outpatient Historical [facility] Internal Medicine Medical [facility] [address] [facility] [address] [address] Leticia Garza Social History Tobacco Use Types Packs/Day Years Used Date Smoking Tobacco: Never Assessed Comments Unknown Sex and Gender Information Value Date Recorded Sex Assigned at Not on file Legal Sex Female 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 [place] [address] [place] [address] Yaron Lopez MD [address] [facility] [address] [place] [address] documented as of this encounter Visit Diagnoses Not on filedocumented in this encounter Care Teams Television Mechanic Relationship Specialty Start Date End Date Maggie Thomas MD PCP - General Family Practice 04/02/21 documented as of this encounter
--- OUTSIDE RECORDS SUMMARY | 2025-03-17 16:49 | XMS_ITS | Encounter Summary ---
Author Organization [facility] Address [address] [place] [address] Care Team Providers Care Power System Dispatcher Name Role Phone Maggie Thomas MD Primary Care Provider +1- [phone] Encounter Details Date Type Department Care Team (Late st Contact Info) Description 03/14/2000 Outpatient Historical [facility] Internal Medicine Medical [facility] [address] [facility] [address] [address] Leticia Garza Social History Tobacco Use Types Packs/Day Years Used Date Smoking Tobacco: Never Assessed Comments Unknown Sex and Gender Information Value Date Recorded Sex Assigned at Not on file Legal Sex Female 5:18 AM POURER BULL LADLE Gender Identity Not on file Sexual Orientation Not on file documented as of this encounter Plan of Treatment Upcoming Encounters Date Type Department Care Team (Late st Contact Info) Description 04/08/2025 11:00 AM CDT Office Visit [facility] Oncology and Hematology - [place] [address] [facility] 200 [place] [address] Yaron Lopez MD [address] [facility] [address] [place] [address] documented as of this encounter Visit Diagnoses Not on filedocumented in this encounter Care Teams Power System Dispatcher Relationship Specialty Start Date End Date Maggie Thomas MD PCP - General Family Practice 04/02/21 documented as of this encounter
--- OUTSIDE RECORDS SUMMARY | 2025-03-17 16:49 | XMS_ITS | Encounter Summary ---
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 200 [place] [address] Yaron Lopez MD [address] [facility] [address] [place] [address] documented as of this encounter Visit Diagnoses Not on filedocumented in this encounter Care Teams Drum Sander Setter Relationship Specialty Start Date End Date Maggie Thomas MD PCP - General Family Practice 04/02/21 documented as of this encounter
--- OUTSIDE RECORDS SUMMARY | 2025-03-17 16:49 | XMS_ITS | Encounter Summary ---
Author Organization [facility] Address [address] [facility] Attn: Epic Prelude ADT [place] BOB [address] Care Team Providers Care Skiver Welt End Name Role Phone Maggie Thomas MD Primary Care Provider +1- [phone] Encounter Details Date Type Department Care Team (Late st Contact Info) Description 10/21/1996 Outpatient Historical Conversion, History Leticia Garza Social History Tobacco Use Types Packs/Day Years Used Date Smoking Tobacco: Never Assessed Comments Unknown Sex and Gender Information Value Date Recorded Sex Assigned at Not on file Legal Sex Female 5:18 AM SUPERVISOR CUSTOMER SERVICES Gender Identity Not on file Sexual Orientation Not on file documented as of this encounter Plan of Treatment Upcoming Encounters Date Type Department Care Team (Late st Contact Info) Description 04/08/2025 11:00 AM CDT Office Visit [facility] Oncology and Hematology - [place] [address] [place] [address] [facility] 200 [place] [address] Yaron Lopez MD [address] [facility] [address] [place] [address] documented as of this encounter Visit Diagnoses Not on filedocumented in this encounter Care Teams Skiver Welt End Relationship Specialty Start Date End Date Maggie Thomas MD PCP - General Family Practice 04/02/21 documented as of this encounter
--- OUTSIDE RECORDS SUMMARY | 2025-03-17 16:49 | XMS_ITS | Encounter Summary ---
Author Organization [facility] Address [address] [place] [address] Care Team Providers Care Financial Compliance Officer Name Role Phone Maggie Thomas MD Primary Care Provider +1- [phone] Encounter Details Date Type Department Care Team (Late st Contact Info) Description 02/29/2000 Outpatient Historical [facility] Internal Medicine Medical [facility] [address] [facility] [address] [address] Leticia Garza Social History Tobacco Use Types Packs/Day Years Used Date Smoking Tobacco: Never Assessed Comments Unknown Sex and Gender Information Value Date Recorded Sex Assigned at Not on file Legal Sex Female 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 DIRECTOR Gender Identity Not on file Sexual Orientation Not on file documented as of this encounter Plan of Treatment Upcoming Encounters Date Type Department Care Team (Late st Contact Info) Description 04/08/2025 11:00 AM CDT Office Visit [facility] Oncology and Hematology - Romero [address] [facility] 200 [place] [address] Yaron Lopez MD [address] [facility] [address] [place] [address] documented as of this encounter Visit Diagnoses Not on filedocumented in this encounter Care Teams Financial Compliance Officer Relationship Specialty Start Date End Date Maggie Thomas MD PCP - General Family Practice 04/02/21 documented as of this encounter
--- OUTSIDE RECORDS SUMMARY | 2025-03-17 16:49 | XMS_ITS | Encounter Summary ---
Author Organization [facility] Address [address] [place] [address] Care Team Providers Care Community Development Technician Name Role Phone Maggie Thomas MD Primary Care Provider [phone]- [phone] Encounter Details Date Type Department Care Team (Late st Contact Info) Description 11/03/1998 Outpatient Historical [facility] Internal Medicine Medical [facility] [address] [facility] [address] [address] Leticia Garza Social History Tobacco Use Types Packs/Day Years Used Date Smoking Tobacco: Never Assessed Comments Unknown Sex and Gender Information Value Date Recorded Sex Assigned at Not on file Legal Sex Female 5:18 AM JAILER CHIEF Gender Identity Not on file Sexual Orientation Not on file documented as of this encounter Plan of Treatment Upcoming Encounters Date Type Department Care Team (Late st Contact Info) Description 04/08/2025 11:00 AM CDT Office Visit [facility] Oncology and Hematology - Romero [address] [facility] 200 [place] [address] Yaron Lopez MD [address] [facility] [address] [place] [address] documented as of this encounter Visit Diagnoses Not on filedocumented in this encounter Care Teams Community Development Technician Relationship Specialty Start Date End Date Maggie Thomas MD PCP - General Family Practice 04/02/21 documented as of this encounter
--- OUTSIDE RECORDS SUMMARY | 2025-03-17 16:49 | XMS_ITS | Encounter Summary ---
Author Organization [facility] Address [address] [place] [address] Care Team Providers Care Avionic Technician Name Role Phone Maggie Thomas MD Primary Care Provider +1- [phone] Encounter Details Date Type Department Care Team (Latest Contact Info) Description 02/29/2000 Outpatient Historical [facility] Leticia Chavez Depressive disorder, not elsewhere classified (Primary Dx) Social History Tobacco Use Types Packs/Day Years Used Date Smoking Tobacco: Never Assessed Comments Unknown Sex and Gender Information Value Date Recorded Sex Assigned at Not on file Legal Sex Female 5:18 AM RECRUITING ASSISTANT Gender Identity Not on file Sexual Orientation Not on file documented as of this encounter Plan of Treatment Upcoming Encounters Date Type Department Care Team (Late st Contact Info) Description 04/08/2025 11:00 AM CDT Office Visit [facility] Oncology and Hematology - [place] [address] [facility] 200 [place] [address] Yaron Lopez MD [address] [facility] [address] [place] [address] documented as of this encounter Visit Diagnoses Diagnosis Depressive disorder, not elsewhere classified- Primary documented in this encounter Care Teams Avionic Technician Relationship Specialty Start Date End Date Maggie Thomas MD PCP - General Family Practice 04/02/21 documented as of this encounter
--- OUTSIDE RECORDS SUMMARY | 2025-03-17 16:49 | XMS_ITS | Clinical Summary ---
Author Organization [facility] Address 1 [place] [address] Care Team Providers Care Data Consultant Name Role Phone Maggie Thomas MD [...] on file Legal Sex Female 3:27 PM PHOTOGRAPHIC RESTORER Gender Identity Not on file Sexual Orientation [...] Td or Tdap) 04/28/2031 04/28/2021 Insurance MEDICARE [facility] MEDICARE [employer] [place] Care Teams Data Consultant Relationship Specialty Start Date End Date Maggie Thomas MD [address] [facility] [address] [place] [address] PCP - General Family Medicine 08/19/20
--- OUTSIDE RECORDS SUMMARY | 2025-03-17 16:49 | XMS_ITS | Encounter Summary ---
Author Organization [facility] Address [address] [place] [address] Care Team Providers Care Associate Professor Of Mathematics Name Role Phone Maggie Thomas MD Primary Care Provider +1- [phone] Encounter Details Date Type Department Care Team (Late st Contact Info) Description 12/17/1998 Outpatient Historical [facility] Internal Medicine Medical [facility] [address] [facility] [address] [address] Leticia Garza Social History Tobacco Use Types Packs/Day Years Used Date Smoking Tobacco: Never Assessed Comments Unknown Sex and Gender Information Value Date Recorded Sex Assigned at Not on file Legal Sex Female 5:18 AM REGIONAL LOSS PREVENTION MANAGER Gender Identity Not on file Sexual Orientation Not on file documented as of this encounter Plan of Treatment Upcoming Encounters Date Type Department Care Team (Late st Contact Info) Description 04/08/2025 11:00 AM CDT Office Visit [facility] Oncology and Hematology - Romero [address] [facility] 200 [place] [address] Yaron Lopez MD [address] [facility] [address] [place] [address] documented as of this encounter Visit Diagnoses Not on filedocumented in this encounter Care Teams Associate Professor Of Mathematics Relationship Specialty Start Date End Date Maggie Thomas MD PCP - General Family Practice 04/02/21 documented as of this encounter
--- OUTSIDE RECORDS SUMMARY | 2025-03-17 16:49 | XMS_ITS | Encounter Summary ---
Author Organization [facility] Address [address] [facility] Attn: Epic Prelude ADT [place] BOB [address] Care Team Providers Care Chemical Dependency Nurse Name Role Phone Maggie Thomas MD Primary Care Provider [phone]- [phone] Encounter Details Date Type Department Care Team (Late st Contact Info) Description 01/06/1997 Outpatient Historical Conversion, History Leticia Garza Social History Tobacco Use Types Packs/Day Years Used Date Smoking Tobacco: Never Assessed Comments Unknown Sex and Gender Information Value Date Recorded Sex Assigned at Not on file Legal Sex Female 5:18 AM PARQUETRY LAYER Gender Identity Not on file Sexual Orientation Not on file documented as of this encounter Plan of Treatment Upcoming Encounters Date Type Department Care Team (Late st Contact Info) Description 04/08/2025 11:00 AM CDT Office Visit [facility] Oncology and Hematology - [place] [address] [place] [address] [facility] 200 [place] [address] Yaron Lopez MD [address] [facility] [address] [place] [address] documented as of this encounter Visit Diagnoses Not on filedocumented in this encounter Care Teams Chemical Dependency Nurse Relationship Specialty Start Date End Date Maggie Thomas MD PCP - General Family Practice 04/02/21 documented as of this encounter
--- OUTSIDE RECORDS SUMMARY | 2025-03-17 16:49 | XMS_ITS | Encounter Summary ---
Author Organization [facility] Address [address] [place] [address] Care Team Providers Care Contact Acid Plant Operator Helper Name Role Phone Maggie Thomas MD Primary Care Provider [phone]- [phone] Encounter Details Date Type Department Care Team (Late st Contact Info) Description 04/16/1999 Outpatient Historical [facility] Internal Medicine Medical [facility] [address] [facility] [address] [address] Leticia Garza Social History Tobacco Use Types Packs/Day Years Used Date Smoking Tobacco: Never Assessed Comments Unknown Sex and Gender Information Value Date Recorded Sex Assigned at Not on file Legal Sex Female 5:18 AM CBX OPERATOR Gender Identity Not on file Sexual Orientation Not on file documented as of this encounter Plan of Treatment Upcoming Encounters Date Type Department Care Team (Late st Contact Info) Description 04/08/2025 11:00 AM CDT Office Visit [facility] Oncology and Hematology - Romero [address] [facility] 200 [place] [address] Yaron Lopez MD [address] [facility] [address] [place] [address] documented as of this encounter Visit Diagnoses Not on filedocumented in this encounter Care Teams Contact Acid Plant Operator Helper Relationship Specialty Start Date End Date Maggie Thomas MD PCP - General Family Practice 04/02/21 documented as of this encounter
--- OUTSIDE RECORDS SUMMARY | 2025-03-17 16:49 | XMS_ITS | Encounter Summary ---
Author Organization [facility] Care Team Providers Care News Production Assistant Name Role Phone Arcadio Valdivia DO Primary Care Provider [phone] Maggie Thomas MD Primary Care Provider Encounter Details Date Type Department Care Team (Latest Contact Info) Description 03/18/2016 Orders Only [facility] CLINCONV ProviderLaurie MD [address] [place] [address] Social History Tobacco Use Types Packs/Day Years Used Date Smoking Tobacco: Never Assessed Comments Unknown Sex and Gender Information Value Date Recorded Sex Assigned at Not on file Legal Sex Female 3:27 PM LONG DISTANCE BILLING OPERATOR Gender Identity Not on file Sexual [...] on filedocumented in this encounter Care Teams News Production Assistant Relationship Specialty Start Date End Date Arcadio Valdivia DO PCP - General 05/26/17 08/18/20 Maggie Thomas MD [address] [facility] [address] [place] [id number] PCP - General Family Medicine 08/19/20 documented as of this encounter
== END 2025-03-17 14:39 | disposition home or self-care (01) ==
PROVIDERS: PCP Family Medicine; Visit Provider Physician Assistant
DX: R10.2 Pelvic and perineal pain (principal); R14.0 Abdominal distension (gaseous); Z78.0 Asymptomatic menopausal state
CPT/HCPCS: 76856

== ENCOUNTER 2025-09-02 13:24 | Outpatient (CLI) | payer MEDICARE, BC, SELFPAY ==
--- NOTE | ~2025-09-02 | CT_ITS ---
CT abdomen pelvis w con INDICATION:abdominal distension (gaseous) . COMPARISON: None. TECHNIQUE: Axial images of the abdomen and pelvis were obtained following infusion of 100 mL Isovue 300. Dose optimization technique was utilized. FINDINGS: The lung bases are clear. The liver parenchyma is unremarkable. No intrahepatic mass or ductal dilatation is evident. The gallbladder is unremarkable. The pancreas and spleen are normal in appearance. The adrenal glands are symmetric in size. The kidneys demonstrate symmetric uptake and excretion of contrast. No cystic mass is evident. There is no solid mass. There is no hydronephrosis. Evaluation of the stomach and bowel loops are limited due to lack of oral contrast. The bladder and rectum are normal. The uterus and both adnexa are unremarkable. Prominent uterine vessels is suggestive of pelvic congestion syndrome. No free intraperitoneal fluid or air is evident. There is no significant retroperitoneal lymphadenopathy. The aorta, visceral vessels and renal arteries demonstrate normal caliber and patency. The lower thoracic and lumbar vertebrae are in normal alignment. IMPRESSION: No acute abnormality is noted in the abdomen and pelvis. Prominent uterine vessels are suggestive of pelvic congestion syndrome. All CT scans at this facility are performed using low dose modulation techniques as appropriate to perform exam including the following: automated exposure control; use of iterative reconstruction technique; adjustment of the mA and/or kV according to patient size (this includes techniques or standardized protocols for targeted exams where dose is matched to indication/reason for exam). Reviewed, dictated and finalized at location S. IMPRESSION: No acute abnormality is noted in the abdomen and pelvis. Prominent uterine vessels are suggestive of pelvic congestion syndrome. All CT scans at this facility are performed using low dose modulation techniqu es as appropriate to perform exam including the following: automated exposure c ontrol; use of iterative reconstruction technique; adjustment of the mA and/or kV according to patient size (this includes techniques or standardized protocol s for targeted exams where dose is matched to indication/reason for exam).
[2025-09-02 13:45] LABS: Estimated Glomerular Filt Rate 48
--- OUTSIDE RECORDS SUMMARY | 2025-09-02 15:21 | XMS_ITS | Encounter Summary ---
Author Organization [facility] Address [address] [place] [address] Care Team Providers Care Croze Machine Operator Name Role Phone Joaquin Sarabia MD Primary Care Provider [phone] Encounter Details Date Type Department Care Team (Late st Contact Info) Description 04/16/1999 Outpatient Historical [facility] Internal Medicine Medical [facility] [address] [facility] [address] [address] Leticia Garza Social History Tobacco Use Types Packs/Day Years Used Date Smoking Tobacco: Never Assessed Comments Unknown Sex and Gender Information Value Date Recorded Sex Assigned at Not on file Legal Sex Female 5:18 AM TELEPHONE STATION REPAIRER Gender Identity Not on file Sexual Orientation Not on file documented as of this encounter Plan of Treatment Upcoming Encounters Date Type Department Care Team (Late st Contact Info) Description 10/09/2025 1:15 PM TELEPHONE STATION REPAIRER Office Visit [facility] Oncology and Hematology - Rom[place] [address] [facility] 200 [place] [address] Yaron Lopez MD [address] [facility] [address] [place] [address] documented as of this encounter Visit Diagnoses Not on filedocumented in this encounter Care Teams Croze Machine Operator Relationship Specialty Start Date End Date Joaquin Sarabia MD [address] [facility] [address] [place] [id number] PCP - General Family Practice 04/08/25 documented as of this encounter
--- OUTSIDE RECORDS SUMMARY | 2025-09-02 15:21 | XMS_ITS | Encounter Summary ---
Author Organization [facility] Care Team Providers Care Pile Trimmer Name Role Phone Arcadio Valdivia DO Primary Care Provider [phone] Maggie Thomas MD Primary Care Provider Encounter Details Date Type Department Care Team (Latest Contact Info) Description 03/18/2016 Orders Only [facility] CLINCONV ProviderLaurie MD [address] [place] [address] Social History Tobacco Use Types Packs/Day Years Used Date Smoking Tobacco: Never Assessed Comments Unknown Sex and Gender Information Value Date Recorded Sex Assigned at Not on file Legal Sex Female 3:27 PM FORM PRESS OPERATOR Gender Identity Not on file [...] on filedocumented in this encounter Care Teams Pile Trimmer Relationship Specialty Start Date End Date Arcadio Valdivia DO PCP - General 05/26/17 08/18/20 Maggie Thomas MD [address] [facility] 120 [place] [id number] PCP - General Family Medicine 08/19/20 documented as of this encounter
--- OUTSIDE RECORDS SUMMARY | 2025-09-02 15:21 | XMS_ITS | Encounter Summary ---
Author Organization [facility] Address [address] [facility] Attn: Epic Prelude ADT [place] [address] Care Team Providers Care Medical Secretary Receptionist Name Role Phone Joaquin Sarabia MD Primary Care Provider [phone] Encounter Details Date Type Department Care Team (Late st Contact Info) Description 10/21/1996 Outpatient Historical Conversion, History Leticia Garza Social History Tobacco Use Types Packs/Day Years Used Date Smoking Tobacco: Never Assessed Comments Unknown Sex and Gender Information Value Date Recorded Sex Assigned at Not on file Legal Sex Female 5:18 AM MANAGER REVENUE Gender Identity Not on file Sexual Orientation Not on file documented as of this encounter Plan of Treatment Upcoming Encounters Date Type Department Care Team (Late st Contact Info) Description 10/09/2025 1:15 PM MANAGER REVENUE Office Visit [facility] Oncology and Hematology - Romero [address] [facility] 200 [place] [address] Yaron Lopez MD [address] [facility] [address] [place] [address] documented as of this encounter Visit Diagnoses Not on filedocumented in this encounter Care Teams Medical Secretary Receptionist Relationship Specialty Start Date End Date Joaquin Sarabia MD [address] [facility] 120 [place] [address] PCP - General Family Practice 04/08/25 documented as of this encounter
--- OUTSIDE RECORDS SUMMARY | 2025-09-02 15:21 | XMS_ITS | Encounter Summary ---
Author Organization [facility] Address [address] [place] [address] Care Team Providers Care Wilton Weaver Name Role Phone Joaquin Sarabia MD Primary Care Provider [phone] Encounter Details Date Type Department Care Team (Late st Contact Info) Description 12/17/1998 Outpatient Historical [facility] Internal Medicine Medical [facility] [address] [facility] [address] [address] Leticia Garza Social History Tobacco Use Types Packs/Day Years Used Date Smoking Tobacco: Never Assessed Comments Unknown Sex and Gender Information Value Date Recorded Sex Assigned at Not on file Legal Sex Female 5:18 AM STRATEGIC DEBRIEFING SPECIALIST Gender Identity Not on file Sexual Orientation Not on file documented as of this encounter Plan of Treatment Upcoming Encounters Date Type Department Care Team (Late st Contact Info) Description 10/09/2025 1:15 PM STRATEGIC DEBRIEFING SPECIALIST Office Visit [facility] Oncology and Hematology - Romero [address] [facility] 200 [place] [address] Yaron Lopez MD [address] [facility] [address] [place] [address] documented as of this encounter Visit Diagnoses Not on filedocumented in this encounter Care Teams Wilton Weaver Relationship Specialty Start Date End Date Joaquin Sarabia MD [address] [facility] 120 [place] [id number] PCP - General Family Practice 04/08/25 documented as of this encounter
--- OUTSIDE RECORDS SUMMARY | 2025-09-02 15:21 | XMS_ITS | Encounter Summary ---
Author Organization [facility] Address [address] [place] [address] Care Team Providers Care Microstrategy Bi Developer Name Role Phone Joaquin Sarabia MD Primary Care Provider [phone] Encounter Details Date Type Department Care Team (Late st Contact Info) Description 02/29/2000 Outpatient Historical [facility] Internal Medicine Medical [facility] [address] [facility] [address] [address] Leticia Garza Social History Tobacco Use Types Packs/Day Years Used Date Smoking Tobacco: Never Assessed Comments Unknown Sex and Gender Information Value Date Recorded Sex Assigned at Not on file Legal Sex Female 5:18 AM PRODUCTION MECHANIC Gender Identity Not on file Sexual Orientation Not on file documented as of this encounter Plan of Treatment Upcoming Encounters Date Type Department Care Team (Late st Contact Info) Description 10/09/2025 1:15 PM PRODUCTION MECHANIC Office Visit [facility] Oncology and Hematology - Romero [address] [facility] 200 [place] [address] Yaron Lopez MD [address] [facility] [address] [place] [address] documented as of this encounter Visit Diagnoses Not on filedocumented in this encounter Care Teams Microstrategy Bi Developer Relationship Specialty Start Date End Date Joaquin Sarabia MD [address] [facility] [address] [place] [phone] PCP - General Family Practice 04/08/25 documented as of this encounter
--- OUTSIDE RECORDS SUMMARY | 2025-09-02 15:21 | XMS_ITS | Encounter Summary ---
Author Organization [facility] Address [address] [place] [address] Care Team Providers Care Community Life Director Name Role Phone Joaquin Sarabia MD Primary Care Provider [phone] Encounter Details Date Type Department Care Team (Late st Contact Info) Description 03/14/2000 Outpatient Historical [facility] Internal Medicine Medical [facility] [address] [facility] [address] [address] Leticia Garza Social History Tobacco Use Types Packs/Day Years Used Date Smoking Tobacco: Never Assessed Comments Unknown Sex and Gender Information Value Date Recorded Sex Assigned at Not on file Legal Sex Female 5:18 AM BRAND ATTENDANT Gender Identity Not on file Sexual Orientation Not on file documented as of this encounter Plan of Treatment Upcoming Encounters Date Type Department Care Team (Late st Contact Info) Description 10/09/2025 1:15 PM BRAND ATTENDANT Office Visit [facility] Oncology and Hematology - Romero [address] [facility] 200 [place] [address] Yaron Lopez MD [address] [facility] [address] [place] [address] documented as of this encounter Visit Diagnoses Not on filedocumented in this encounter Care Teams Community Life Director Relationship Specialty Start Date End Date Joaquin Sarabia MD [address] [facility] 120 [place] [phone] PCP - General Family Practice 04/08/25 documented as of this encounter
--- OUTSIDE RECORDS SUMMARY | 2025-09-02 15:21 | XMS_ITS | Encounter Summary ---
Author Organization [facility] Address [address] [place] [address] Care Team Providers Care Arts And Crafts Instructor Name Role Phone Joaquin Sarabia MD Primary Care Provider [phone] Encounter Details Date Type Department Care Team (Late st Contact Info) Description 12/29/1998 Outpatient Historical [facility] Internal Medicine Medical [facility] [address] [facility] [address] [address] Leticia Garza Social History Tobacco Use Types Packs/Day Years Used Date Smoking Tobacco: Never Assessed Comments Unknown Sex and Gender Information Value Date Recorded Sex Assigned at Not on file Legal Sex Female 5:18 AM MANAGER OF FINANCIAL PLANNING Gender Identity Not on file Sexual Orientation Not on file documented as of this encounter Plan of Treatment Upcoming Encounters Date Type Department Care Team (Late st Contact Info) Description 10/09/2025 1:15 PM MANAGER OF FINANCIAL PLANNING Office Visit [facility] Oncology and Hematology - Romero [address] [facility] 200 [place] [address] Yaron Lopez MD [address] [facility] [address] [place] [address] documented as of this encounter Visit Diagnoses Not on filedocumented in this encounter Care Teams Arts And Crafts Instructor Relationship Specialty Start Date End Date Joaquin Sarabia MD [address] [facility] 120 [place] [phone] PCP - General Family Practice 04/08/25 documented as of this encounter
--- OUTSIDE RECORDS SUMMARY | 2025-09-02 15:21 | XMS_ITS | Clinical Summary ---
Author Organization [facility] Address [address] [place] [address] Care Team Providers Care Customs Officer Name Role Phone Maggie Thomas MD Primary Care Provider Allergies Active Allergy Reactions Criticality Noted Date Comments Anastrozole Itching,Rash Medium 09/21/2021 Medications amLODIPine (NORVASC) 5 mg tablet amlodipine 5 mg tablet 1 Active clobetasoL (TEMOVATE) 0.05 % cream APPLY TOPICALLY TO THE AFFECTED AREA EVERY DAY AT BEDTIME 4 Active conj estrogens-bazed oxifene (Duavee) 0.45-20 mg tablet 0.45-20 mg daily Act jessica traZODone (DESYREL) 50 mg tablet Take 1 tablet (50 mg total) by mouth nightly at bedtime 4 Active lidocaine (LIDODERM) 5 %Indications:Ac masha right-sided thoracic back pain Place 1 patch on the skin daily for 5 days Apply to painful area 12 hours per day, remove for 12 hours. 5 patch 4 Active Additional Information Patient not taking.Reported on 06/26/2025 mupirocin (BACTROBAN) 2 % ointmentIndicat ions:Abrasion of left lower leg with infection, initial encounter,Abras ion, right lower leg, initial encounter Apply topically 2 (two) times a day 22 g 5 Active sodium chlor-hypochlor ous acid (Vashe) 0.033 % irrigation solution Wash the wound once daily and prn with Vashe. Apply Vashe to a dry 4 x 4, wring out the 4 x 4, apply the moistened Vashe to the wound bed, and secure down. 250 mL 2 5 Active Active Problems Problem Noted Date Diagnosed Date S/P bilateral mastectomy 09/21/2021 Essential hypertension 05/17/2021 Malignant neoplasm of upper- inner quadrant of left breast in female, estrogen receptor positive 04/02/2021 Varicose veins of left lower extremity 6 Encounters Date Type Department Care Team Description 08/04/2025 11:00 AM CDT Orders Only [facility] [address] [place] [address] 07/22/2025 11:30 AM CDT Orders Only [facility] Care [facility] [address] [place] [address] 07/15/2025 1:00 PM CDT Orders Only [facility] [address] [place] [address] 07/08/2025 1:00 PM CDT Orders Only [facility] [address] [place] [address] 07/08/2025 Orders Only [facility] [address] [place] [address] Todd Albinapaulino 07/02/2025 Results Follow-Up [facility] at [address] [phone] Dylon Golden NP Aerobic and anaerobic culture and gram stain Wound Leg, left 06/26/2025 11:02 AM CDT - 06/26/2025 11:59 PM CDT Hospital Encounter [address] [address] Visit for wound check Discharge Disposition: Discharge to home or self care 06/26/2025 11:00 AM CDT Office Visit [facility] at [address] [phone] Lulú Rosales NP Visit for wound check (Primary Dx) 06/19/2025 10:45 AM CDT Office Visit [facility] at [address] [address] Jaclyn Nunes, ISELA Abrasion of left lower leg with infection, initial encounter (Primary Dx); Abrasion, right lower leg, initial encounter from Last 3 Months Immunizations Immunization Administration Dates Next Due Influenza, [...] more drinks on one occasion? 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 Gender Identity Not on file Sexual Orientation Not on file Obstetrics History Last Filed Vital Signs Vital Sign Reading Time Taken Comments Blood Pressure 136/80 06/26/2025 10:47 AM CDT Pulse 75 06/26/2025 10:47 AM CDT Temperature 36.7 C (98.1 F) 06/26/2025 10:47 AM CDT Respiratory Rate 20 06/26/2025 10:47 AM CDT Oxygen Saturation 98% 06/26/2025 10:47 AM CDT Inhaled Oxygen Concentration - - Weight 78 kg (172 lb) 06/26/2025 10:47 AM CDT Height 165.1 cm (5' 5) 06/19/2025 10:05 AM CDT Body Mass Index 28.62 06/19/2025 10:05 AM CDT Plan of Treatment Health Maintenance Due Date Last Done Comments Depression Screening 1943 Fall Risk Assessment 1945 Osteoporosis Screening-Bone Density Scan 1943 Hepatitis B Screening 1961 Pneumococcal vaccine 65+ (1 of 1 - PCV) 1993 Well Visit 65+ 2008 Zoster Vaccine (2 of 2) 12/17/2021 10/22/2021 Covid-19 Vaccine (2024-2 6 season) 2025 08/18/2023, 09/30/2022, 05/13/2022, Additional history exists Influenza Vaccine (#1) 2025 , 08/16/2022, 09/03/2021, Additional history exists DTaP/Tdap/Td Vaccine (2 - Td or Tdap) 04/28/2031 04/28/2021 Procedures Procedure Name Priority Date/Time Associated Diagnosis Comments AEROBIC AND ANAEROBIC CULTURE AND GRAM STAIN Routine 06/26/2025 11:09 AM CDT Visit for wound check from Last 3 Months Results * (ABNORMAL) Aerobic and anaerobic culture and gram stain Wound Leg, left (06/26/2025 11:09 AM CDT) Direct Specimen Exam Stain: No polymorphonuclear leukocytes seen. No organisms seen. Comment:Testing performed by : [facility], [address] [place] [address] Report Final Report: Rare Gram Negative Bacilli resembling Stenotrophomonas Sp. (.) DARRIN Comment:Testing performed by : [facility], [address] [place]., [address] Organism GRAM NEGATIVE BACILLI DARRIN Wound (Leg, left) 06/26/2025 11:09 AM CDT 06/26/2025 7:08 PM CDT Demetrio CLIFFORD CH - 07/02/2025 11:21 AM CDT Specimen received on an ESwab. Testing performed by [facility] Microbiology Laboratory ([phone]) Specimens submitted from normally sterile body sites will have all bacterial morphotypes identified. Specimens that contain grossly mixed elias and/or are from body sites that are not normally sterile will be examined for Staphylococcus aureus, Pseudomonas aeruginosa, beta-hemolytic strep, vancomycin-resistant Enterococcus, Bacteroides, Parabacteroides, Clostridium perfringens and fungus. If any of these are isolated, the organism will be reported. Current interpretive data was last revised on 2020. Lulú Rosales NP LAB MICROBIOLOGY - GENERAL ORD ERABLES Final Result DARRIN SINCLAIR [id number] [address] Department [place] [address] from Last 3 Months Insurance MEDICARE [facility] FEDERAL Care Teams Customs Officer Relationship Specialty Start Date End Date Maggie Thomas MD [address] [facility] [address] [place] [address] PCP - General Family Medicine 08/19/20
--- OUTSIDE RECORDS SUMMARY | 2025-09-02 15:21 | XMS_ITS | Clinical Summary ---
Author Organization [facility] Address [address] [facility] [place] [address] Care Team Providers Care Personal Carer Name Role Phone Joaquin Sarabia MD Primary Care Provider [phone] Allergies Active Allergy Reactions Criticality Noted Date Comments Anastrozole Rash,Itching Low 09/21/2021 Medications amLODIPine (NORVASC) 5 mg tablet Take 5 mg by mouth daily. 04/22/2021 Active Active Problems Patient Care Coordination No te Formatting of this note migh t be different from the original. Primary Care: Maggie Thomas MD Referring Provider: Maggie Thomas MD [address] [facility] [place] [address] Other: Dr. Lindsey Kilgore MD Problem Noted Date Diagnosed Date S/P bilateral mastectomy 09/21/2021 Malignant neoplasm of upper- inner quadrant of left breast in female, estrogen receptor positive 04/02/2021 Cancer Staging:Clinical stage from 05/26/2021:Stage IA(cT1c, cN0(sn), cM0, G2, ER+, NY+, HER2-) - Signed by Lindsey Kilgore MD on 05/26/2021 Encounters Date Type Department Care Team Description 08/26/2025 External Device Data STL ABSTRACTION Provider, Abstract 08/05/2025 External Device Data STL ABSTRACTION Provider, Abstract 07/08/2025 External Device Data STL ABSTRACTION Provider, Abstract 06/24/2025 External Device Data STL ABSTRACTION Provider, Abstract 06/04/2025 External Device Data STL ABSTRACTION Provider, Abstract 06/03/2025 External Device Data STL ABSTRACTION Provider, Abstract [...] on file Legal Sex Female 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 CAR 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 Gender Identity Not on file Sexual Orientation Not on file Last Filed Vital Signs Vital Sign Reading Time Taken Comments Blood Pressure 137/72 04/08/2025 10:42 AM CDT Pulse 71 04/08/2025 10:42 AM CDT Temperature 36.7 C (98 F) 04/08/2025 10:42 AM CDT Respiratory Rate 15 04/08/2025 10:42 AM CDT Oxygen Saturation 95% 04/08/2025 10:42 AM CDT Inhaled Oxygen Concentration - - Weight 76.7 kg (169 lb) 04/08/2025 10:42 AM CDT Height 165.1 cm (5' 5) 08/31/2022 1:08 PM CDT Body Mass Index 28.12 08/31/2022 1:08 PM CDT Plan of Treatment Upcoming Encounters Date Type Department Care Team (Late st Contact Info) Description 10/09/2025 1:15 PM RAIL CAR WELDER Office Visit [facility] Oncology and Hematology - Romero [address] [place] [address] Yaron Lopez MD [address] [facility] [address] [place] [address] Health Maintenance Due Date Last Done Comments PNEUMOCOCCAL VACCINE 50+ YEA RS (1 of 1 - PCV) 1993 RSV VACCINE (60+ or ) (1 - 1-dose 75+ series) 2018 ZOSTER VACCINE (2 of 2) 12/17/2021 10/22/2021 INFLUENZA VACCINE (#1) 2025 3, 08/16/2022, 09/03/2021, Additional history exists COVID-19 Vaccine (3 - 2024-2 6 season) 2025 02/02/2021, 01/13/2021 OSTEOPOROSIS SCREENING 03/10/2030 5, 04/03/2017, 03/17/2015 DTAP/TDAP/TD VACCINES (2 - T d or Tdap) 04/28/2031 04/28/2021 Colorectal Cancer Screening Discontinued FIT/FOBT Q 1 year Discontinued 03/14/2000, , 11/03/1998 COLORECTAL SCREENING Discontinued FIT-DNA Q 3 years Discontinued Flex Sig/CT Colonography Q 5 years Discontinued Medical Devices Implanted Type Area Label Pinker Device Identifier Shelf Expiration Date Model / Serial / Lot Lpn Instructor Clip Surgiclip Ii Presley 9.75in [id number] - [id number] Implanted:Qty : 1 on 05/17/2021 by Lindsey Kilgore MD at [facility] Clip Breast [employer] - COVID[employer]EN [id number] 02/17/2026 [id number] / / [id number] Hemostatic Surgicel 4x8in 1953 [id number] Implanted:Qty : 3 on 05/17/2021 by Lindsey Kilgore MD at [facility] Hemostatic Breast [employer] 06/19/20251951 / / [id number] Hemostatic Surgicel 4x8in 1953 [id number] Implanted:Qty : 1 on 05/17/2021 by Lindsey Kilgore MD at [facility] Hemostatic Breast [employer] 06/19/20251951 / / [id number] Total Knee Hardware Insurance MEDICARE PART A AND B [facility] FEDERAL [facility] FEDERAL MEDICARE PART A AND B RX [facility] [employer] Advance Directives For more information, please contact: [phone] * Full Code (Latest Code Status on File) Date Activated Date Inactivated Comments 05/17/2021 1:40 PM 05/18/2021 12:43 PM Care Teams Personal Carer Relationship Specialty Start Date End Date Joaquin Sarabia MD [address] [facility] 120 [place] [address] PCP - General Family Practice 04/08/25
--- OUTSIDE RECORDS SUMMARY | 2025-09-02 15:21 | XMS_ITS | Encounter Summary ---
Author Organization [facility] Address [address] [facility] Attn: Epic Prelude ADT [place] [address] Care Team Providers Care Outside Installation Machinist Name Role Phone Joaquin Sarabia MD Primary Care Provider [phone] Encounter Details Date Type Department Care Team (Late st Contact Info) Description 09/04/1997 Outpatient Historical Conversion, History Leticia Garza Social History Tobacco Use Types Packs/Day Years Used Date Smoking Tobacco: Never Assessed Comments Unknown Sex and Gender Information Value Date Recorded Sex Assigned at Not on file Legal Sex Female 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 Gender Identity Not on file Sexual Orientation Not on file documented as of this encounter Plan of Treatment Upcoming Encounters Date Type Department Care Team (Late st Contact Info) Description 10/09/2025 1:15 PM 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 Office Visit [facility] Oncology and Hematology - Romero [address] [facility] 200 [place] [address] Yaron oLpez MD [address] [facility] [address] [place] [address] documented as of this encounter Visit Diagnoses Not on filedocumented in this encounter Care Teams Outside Installation Machinist Relationship Specialty Start Date End Date Joaquin Sarabia MD [address] [facility] [address] [place] [address] PCP - General Family Practice 04/08/25 documented as of this encounter
--- OUTSIDE RECORDS SUMMARY | 2025-09-02 15:21 | XMS_ITS | Encounter Summary ---
Author Organization [facility] Address [address] [place] [address] Care Team Providers Care Assembler Tractor Name Role Phone Joaquin Sarabia MD Primary Care Provider [phone] Encounter Details Date Type Department Care Team (Latest Contact Info) Description 02/29/2000 Outpatient Historical [facility] Leticia Chavez Depressive disorder, not elsewhere classified (Primary Dx) Social History Tobacco Use Types Packs/Day Years Used Date Smoking Tobacco: Never Assessed Comments Unknown Sex and Gender Information Value Date Recorded Sex Assigned at Not on file Legal Sex Female 5:18 AM CRAB PICKER Gender Identity Not on file Sexual Orientation Not on file documented as of this encounter Plan of Treatment Upcoming Encounters Date Type Department Care Team (Late st Contact Info) Description 10/09/2025 1:15 PM CRAB PICKER Office Visit [facility] Oncology and Hematology - Romero [address] [facility] 200 [place] [address] Yaron Lopez MD [address] [facility] [address] [place] [address] documented as of this encounter Visit Diagnoses Diagnosis Depressive disorder, not elsewhere classified- Primary documented in this encounter Care Teams Assembler Tractor Relationship Specialty Start Date End Date Joaquin Sarabia MD [address] [place] [address] [place] [address] PCP - General Family Practice 04/08/25 documented as of this encounter
--- OUTSIDE RECORDS SUMMARY | 2025-09-02 15:21 | XMS_ITS | Encounter Summary ---
Author Organization [facility] Address [address] [facility] Attn: Epic Prelude ADT [place] [address] Care Team Providers Care Mutuel Machine Operator Name Role Phone Joaquin Sarabia MD Primary Care Provider [phone] Encounter Details Date Type Department Care Team (Late st Contact Info) Description 12/02/1996 Outpatient Historical Conversion, History Leticia Garza Social History Tobacco Use Types Packs/Day Years Used Date Smoking Tobacco: Never Assessed Comments Unknown Sex and Gender Information Value Date Recorded Sex Assigned at Not on file Legal Sex Female 5:18 AM ANGLE BENDER Gender Identity Not on file Sexual Orientation Not on file documented as of this encounter Plan of Treatment Upcoming Encounters Date Type Department Care Team (Late st Contact Info) Description 10/09/2025 1:15 PM ANGLE BENDER Office Visit [facility] Oncology and Hematology - Romero [address] [facility] [address] [place] [address] Yaron Lopez MD [address] [facility] [address] [place] [address] documented as of this encounter Visit Diagnoses Not on filedocumented in this encounter Care Teams Mutuel Machine Operator Relationship Specialty Start Date End Date Joaquin Sarabia MD [address] [facility] 120 [place] [address] PCP - General Family Practice 04/08/25 documented as of this encounter
--- OUTSIDE RECORDS SUMMARY | 2025-09-02 15:21 | XMS_ITS | Encounter Summary ---
Author Organization [facility] Address [address] [place] [address] Care Team Providers Care Hvac Installer Name Role Phone Joaquin Sarabia MD Primary Care Provider [phone] Encounter Details Date Type Department Care Team (Late st Contact Info) Description 11/03/1998 Outpatient Historical [facility] Internal Medicine Medical [facility] [address] [facility] [address] [address] Leticia Garza Social History Tobacco Use Types Packs/Day Years Used Date Smoking Tobacco: Never Assessed Comments Unknown Sex and Gender Information Value Date Recorded Sex Assigned at Not on file Legal Sex Female 5:18 AM FILLER BLENDER Gender Identity Not on file Sexual Orientation Not on file documented as of this encounter Plan of Treatment Upcoming Encounters Date Type Department Care Team (Late st Contact Info) Description 10/09/2025 1:15 PM FILLER BLENDER Office Visit [facility] Oncology and Hematology - Romero [address] [facility] 200 [place] [address] Yaron Lopez MD [address] [facility] [address] [place] [address] documented as of this encounter Visit Diagnoses Not on filedocumented in this encounter Care Teams Hvac Installer Relationship Specialty Start Date End Date Joaquin Sarabia MD [address] [facility] [address] [place] [phone] PCP - General Family Practice 04/08/25 documented as of this encounter
--- OUTSIDE RECORDS SUMMARY | 2025-09-02 15:21 | XMS_ITS | Encounter Summary ---
Author Organization [facility] Address [address] [facility] Attn: Epic Prelude ADT [place] [address] Care Team Providers Care Screening Unit Registered Nurse Name Role Phone Joaquin Sarabia MD Primary Care Provider Encounter Details Date Type Department Care Team (Late st Contact Info) Description 11/06/1998 Outpatient Historical Leticia Garza Social History Tobacco Use Types Packs/Day Years Used Date Smoking Tobacco: Never Assessed Comments Unknown Sex and Gender Information Value Date Recorded Sex Assigned at Not on file Legal Sex Female 5:18 AM LCAC OPERATOR Gender Identity Not on file Sexual Orientation Not on file documented as of this encounter Plan of Treatment Upcoming Encounters Date Type Department Care Team (Late st Contact Info) Description 10/09/2025 1:15 PM LCAC OPERATOR Office Visit [facility] Oncology and Hematology - Romero [address] [facility] 200 [place] [address] Yaron Lopez MD [address] [facility] [address] [place] [address] documented as of this encounter Visit Diagnoses Not on filedocumented in this encounter Care Teams Screening Unit Registered Nurse Relationship Specialty Start Date End Date Joaquin Sarabia MD [address] [facility] [address] [place] [address] PCP - General Family Practice 04/08/25 documented as of this encounter
--- OUTSIDE RECORDS SUMMARY | 2025-09-02 15:21 | XMS_ITS | Encounter Summary ---
Author Organization [facility] Address [address] Attn: Epic Prelude ADT [place] [address] Care Team Providers Care Veneer Gluer Name Role Phone Joaquin Sarabia MD Primary Care Provider [phone] Encounter Details Date Type Department Care Team (Late st Contact Info) Description 01/06/1997 Outpatient Historical Conversion, History Leticia Garza Social History Tobacco Use Types Packs/Day Years Used Date Smoking Tobacco: Never Assessed Comments Unknown Sex and Gender Information Value Date Recorded Sex Assigned at Not on file Legal Sex Female 5:18 AM UNDERGROUND UTILITY LOCATOR Gender Identity Not on file Sexual Orientation Not on file documented as of this encounter Plan of Treatment Upcoming Encounters Date Type Department Care Team (Late st Contact Info) Description 10/09/2025 1:15 PM UNDERGROUND UTILITY LOCATOR Office Visit [facility] Oncology and Hematology - [place] [address] [place] [address] Yaron Lopez MD [address] [place] [address] documented as of this encounter Visit Diagnoses Not on filedocumented in this encounter Care Teams Veneer Gluer Relationship Specialty Start Date End Date Joaquin Sarabia MD [address] [facility] [address] [place] [id number] PCP - General Family Practice 04/08/25 documented as of this encounter
== END 2025-09-02 13:25 | disposition home or self-care (01) ==
PROVIDERS: PCP Family Medicine; Visit Provider Family Medicine
DX: R19.4 Change in bowel habit (principal); R14.0 Abdominal distension (gaseous); Z85.3 Personal history of malignant neoplasm of breast
CPT/HCPCS: 74177; Q9967